=== PATIENT | female | born 1950 | race Two or more races ===

== ENCOUNTER 2019-04-16 19:24 | Inpatient (IN) | payer SELFPAY ==
[~2019-04-16] VITALS: Ht 167.6 cm; Wt 85.8 kg
[2019-04-16] MEDS ORDERED: IV NORMAL SALINE 1000ML BAG 1,000 ML IV ONE (20:00)
[2019-04-16] MEDS ORDERED: IPRATRPIUM/ALBUTEROL 0.5/2.5MG 3 ML NEBU. NEB ONE (20:00)
[2019-04-16 20:02] LABS: BASO % 0 % (0-3); EOS % 0 % (0-3); HEMATOCRIT 41.4 % (36.0-47.0); HEMOGLOBIN 13.8 g/dL (12.0-15.5); LYMPH # 0.8 x10^3/uL (1.0-4.8); LYMPH % 11 % (24-48); MEAN CORPUSCULAR HEMOGLOBIN 30 pg (25-35); MEAN CORPUSCULAR HGB CONC 33 g/dL (31-37); MEAN CORPUSCULAR VOLUME 89 fL (79-100); MONO # 0.6 x10^3/uL (0.0-1.1); MONO % 8 % (0-9); NEUT # 6.1 x10^3/uL (1.8-7.7); NEUT % 81 % (31-73); PLATELET COUNT 181 x10^3/uL (140-400); RED BLOOD COUNT 4.66 x10^6/uL (3.50-5.40); RED CELL DISTRIBUTION WIDTH 16.6 % (11.5-14.5); WHITE BLOOD COUNT 7.6 x10^3/uL (4.0-11.0)
[2019-04-16 20:12] LABS: PROTHROMBIN TIME PATIENT 12.1 SEC (11.7-14.0)
[2019-04-16 20:13] LABS: CALCIUM 8.9 mg/dL (8.5-10.1); CREATININE 0.9 mg/dL (0.6-1.0); GFR 61.9; POTASSIUM 4.7 mmol/L (3.5-5.1)
[2019-04-16 20:16] LABS: D-DIMER 1.55 ug/mlFEU (0.00-0.50)
[2019-04-16 20:29] LABS: ALBUMIN 3.1 g/dL (3.4-5.0); ALBUMIN/GLOBULIN RATIO 0.7 (1.0-1.7); TOTAL BILIRUBIN 0.6 mg/dL (0.2-1.0); TOTAL PROTEIN 7.5 g/dL (6.4-8.2)
[2019-04-16] MEDS ORDERED: levOFLOXacin PER PHARMACY. MC PRN (20:45)
[2019-04-16] MEDS ORDERED: FUROSEMIDE 20 MG/2 ML VIAL. IVP ONE (20:45)
--- NOTE | 2019-04-16 20:57 | RAD ---
Indication:Shortness of breath. TECHNIQUE:Portable AP chest X-ray COMPARISON: None FINDINGS: Heart is normal in size. Diffuse interstitial opacities are seen. Fullness is seen in the right hilum. No focal consolidation. No pneumothorax or pleural effusion. Visualized bony thorax within normal limits. IMPRESSION: Interstitial pulmonary edema or atypical/viral infection. Hilar fullness likely secondary to patient being rotated. Hilar mass not ruled out. Nonemergent CT of the chest with IV contrast recommended. Electronically signed by: Yoan Hart DO (04/16/2019 8:54 PM) [facility]
[2019-04-16] MEDS ORDERED: ASPIRIN CHEWABLE 81 MG TABLET. PO ONE (21:00)
[2019-04-16] MEDS ORDERED: CONTRAST GIVEN. MC PRN (21:00)
[2019-04-16] MEDS ORDERED: IOHEXOL 350 MG/ML 100 ML VIAL. IV ONE (21:00)
--- NOTE | 2019-04-16 21:09 | RAD ---
PQRS Compliance statement: One or more of the following individualized dose reduction techniques were utilized for this examination: 1. Automated exposure control. 2. Adjustment of the mA and/or kV according to patient size. 3. Use of iterative reconstruction technique. Indication:Chest pain. Rule out PE. Shortness of breath. TECHNIQUE: CT angiogram of the chest with IV contrast with multiplanar MIP reformats. COMPARISON:None FINDINGS: Suboptimal PE study due to contrast bolus timing and breathing motion artifact. No central or proximal segmental filling defects in the pulmonary arteries. Evaluation of segmental and subsegmental pulmonary arteries is limited. Heart is normal in size. No pericardial or pleural effusion. No enlarged axillary adenopathy. Couple of mildly enlarged mediastinal lymph nodes, the largest measuring 1.6 x 1.4 cm. No hilar adenopathy. Interstitial opacities are seen in the right upper lobe. Mosaic attenuation is seen in the lungs. Severe motion artifact in the lung bases limiting optimal evaluation. Visualized sections through the liver, spleen, gallbladder, and previous, adrenals and upper kidneys within normal limits. No suspicious bony lesion. IMPRESSION: 1. Limited PE study due to contrast bolus timing and breathing motion artifact. No central or proximal segmental PE. Evaluation of distal segmental and subsegmental pulmonary arteries is limited. 2. Interstitial opacities in the bilateral upper lobes may be secondary to interstitial edema or infection. Developing interstitial fibrosis is also a possibility. Electronically signed by: Yoan Hart DO (04/16/2019 9:06 PM) [facility]
--- NOTE | 2019-04-16 22:45 | PHYS DOC ---
Past Medical History Past Medical History: Diabetes-Type II, Hypertension Past Surgical History: No Surgical History Alcohol Use: None Drug Use: None Adult General Chief Complaint Chief Complaint: CHEST PAIN HPI HPI Patient is a 68 year old female private vehicle presents with chief complaint of shortness of breath feels like her chest is tight especially when coughing has had this for about a month or more now but it got worse over the last few days went to primary care doctor Prednisone and some other prescriptions but the symptoms are worse. Patient does not use oxygen at home. Of note in the emergency room the oxygen level does go down into the mid 80s for a little while maybe 30 seconds or so while I am examining the patient with a good waveform and then comes back up into the low 90s. She does have coughing fits in the emergency room. Chest tightness described as heaviness tight across the chest worse with coughing Patient is a known history of pulmonary fibrosis according to the family Review of Systems Review of Systems Constitutional: Denies fever or chills [] Eyes: Denies change in visual acuity, redness, or eye pain [] HENT: Denies nasal congestion or sore throat [] Musculoskeletal: Denies back pain or joint pain [] Integument: Denies rash or skin lesions [] Neurologic: Denies headache, focal weakness or sensory changes [] Endocrine: Denies polyuria or polydipsia [] All other systems were reviewed and found to be within normal limits, except as documented in this note. Current Medications Current Medications Current Medications Medications (Trade) Dose Ordered Sig/Coty Start Time Stop Time Status Last Admin Dose Admin Albuterol/ Ipratropium (Duoneb) 3 ml 1X ONCE 04/16/19 20:00 04/16/19 20:13 DC 04/16/19 20:04 3 ML Sodium Chloride 1,000 ml @ 1,000 mls/hr 1X ONCE 04/16/19 20:00 04/16/19 20:59 DC 04/16/19 20:00 1,000 MLS/HR Allergies Allergies Allergies Coded Allergies Type Severity Reaction Last Updated Verified No Known Drug Allergies 04/16/19 No Physical Exam Physical Exam Constitutional: Well developed, well nourished, no acute distress, non-toxic appearance. [] HENT: Normocephalic, atraumatic, bilateral external ears normal, oropharynx moist, no oral exudates, nose normal. [] Eyes: PERRLA, EOMI, conjunctiva normal, no discharge. [] Neck: Normal range of motion, no tenderness, supple, no stridor. [] Cardiovascular:Heart rate regular rhythm, 2/6 systolic murmur noted Lungs & Thorax: There are some faint wheezing noted reactive cough there are crackles noted throughout both lung ochoa tight lung sounds noted Abdomen: Bowel sounds normal, soft, no tenderness, no masses, no pulsatile masses. [] Skin: Warm, dry, no erythema, no rash. [] Back: No tenderness, no CVA tenderness. [] Extremities: No tenderness, no cyanosis, no clubbing, ROM intact, trace edema. [] Neurologic: Alert and oriented X 3, normal motor function, normal sensory function, no focal deficits noted. [] Psychologic: Affect normal, judgement normal, mood normal. [] Current Patient Data Vital Signs Vital Signs Date Time Temp Pulse Resp B/P (MAP) Pulse Ox O2 Delivery O2 Flow Rate FiO2 04/16/19 20:05 97 Nasal Cannula 3.0 04/16/19 19:58 97.8 78 16 150/83 (105) 97.8 Lab Values Laboratory Tests Test 04/16/19 19:41 04/16/19 19:47 White Blood Count 7.6 x10^3/uL (4.0-11.0) Red Blood Count 4.66 x10^6/uL (3.50-5.40) Hemoglobin 13.8 g/dL (12.0-15.5) Hematocrit 41.4 % (36.0-47.0) Mean Corpuscular Volume 89 fL (79-100) Mean Corpuscular Hemoglobin 30 pg (25-35) Mean Corpuscular Hemoglobin Concent 33 g/dL (31-37) Red Cell Distribution Width 16.6 % (11.5-14.5) H Platelet Count 181 x10^3/uL (140-400) Neutrophils (%) (Auto) 81 % (31-73) H Lymphocytes (%) (Auto) 11 % (24-48) L Monocytes (%) (Auto) 8 % (0-9) Eosinophils (%) (Auto) 0 % (0-3) Basophils (%) (Auto) 0 % (0-3) Neutrophils # (Auto) 6.1 x10^3/uL (1.8-7.7) Lymphocytes # (Auto) 0.8 x10^3/uL (1.0-4.8) L Monocytes # (Auto) 0.6 x10^3/uL (0.0-1.1) Eosinophils # (Auto) 0.0 x10^3/uL (0.0-0.7) Basophils # (Auto) 0.0 x10^3/uL (0.0-0.2) Prothrombin Time 12.1 SEC (11.7-14.0) Prothrombin Time INR 0.9 (0.8-1.1) D-Dimer (Kirsty) 1.55 ug/mlFEU (0.00-0.50) H Sodium Level 134 mmol/L (136-145) L Potassium Level 4.7 mmol/L (3.5-5.1) Chloride Level 99 mmol/L (98-107) Carbon Dioxide Level 30 mmol/L (21-32) Anion Gap 5 (6-14) L Blood Urea Nitrogen 23 mg/dL (7-20) H Creatinine 0.9 mg/dL (0.6-1.0) Estimated GFR (Cockcroft-Gault) 61.9 BUN/Creatinine Ratio 26 (6-20) H Glucose Level 369 mg/dL (70-99) H Lactic Acid Level 2.5 mmol/L (0.4-2.0) H Calcium Level 8.9 mg/dL (8.5-10.1) Total Bilirubin 0.6 mg/dL (0.2-1.0) Aspartate Amino Transferase (AST) 36 U/L (15-37) Alanine Aminotransferase (ALT) 36 U/L (14-59) Alkaline Phosphatase 64 U/L (46-116) Troponin I Quantitative 0.184 ng/mL (0.000-0.055) GM-Wws-X-Type Natriuretic Peptide 2988 pg/mL (0-124) H Total Protein 7.5 g/dL (6.4-8.2) Albumin 3.1 g/dL (3.4-5.0) L Albumin/Globulin Ratio 0.7 (1.0-1.7) L Glucose (Fingerstick) 351 mg/dL (70-99) H Laboratory Tests 04/16/19 19:41 Laboratory Tests 04/16/19 19:41 EKG EKG []EKG shows a normal sinus rhythm rate of 90 no obvious acute ischemic changes noted interpreted by me the time of the clinical encounter. Poor baseline due to what looks like tremor Radiology/Procedures Radiology/Procedures [] Impressions: IMPRESSION: 1. Limited PE study due to contrast bolus timing and breathing motion artifact. No central or proximal segmental PE. Evaluation of distal segmental and subsegmental pulmonary arteries is limited. 2. Interstitial opacities in the bilateral upper lobes may be secondary to interstitial edema or infection. Developing interstitial fibrosis is also a possibility. Electronically signed by: Yoan Hart DO (04/16/2019 9:06 PM) [facility] Course & Med Decision Making Course & Med Decision Making Pertinent Labs and Imaging studies reviewed. (See chart for details) []Noted the troponin and BNP this could be new onset congestive heart failure, CT scan negative for central pulmonary embolism. Troponins will be cycled aspiri n was given. Patient has had symptoms for several days now. In summary this is a 68-year-old female with a history of what sounds like pulmonary fibrosis diabetes hypertension presenting with chest tightness for the last several days worsening shortness of breath generalized weakness increased blood sugar. Patient had been put on prednisone recently by primary care doctor. ER workup reveals elevated BNP slightly elevated troponin CT scan showing either atypical infection or pulmonary edema. I think based on the lab work it's more likely the latter. Patient was treated for both in the ER I spoke with Dr. Latham came to see the patient in the emergency room Dragon Disclaimer Dragon Disclaimer This electronic medical record was generated, in whole or in part, using a voice recognition dictation system. Departure Departure Impression: Primary Impression: CHF (congestive heart failure) Additional Impression: Elevated troponin Disposition: ADMITTED INPATIENT Admitting Physician: ARTHUR Condition: STABLE Referrals: NO PCP (PCP) Problem Qualifiers ARPITA MALIK MD Apr 16, 2019 22:44
[2019-04-17 03:30] LABS: CALCIUM 8.5 mg/dL (8.5-10.1); CREATININE 0.7 mg/dL (0.6-1.0); GFR 82.7; POTASSIUM 3.9 mmol/L (3.5-5.1)
[2019-04-17] MEDS: IPRATRPIUM/ALBUTEROL 0.5/2.5MG 3 ML NEBU. NEB SCH ×4 (07:14→20:00)
[2019-04-17] MEDS ORDERED: SITA100T PO (07:35)
[2019-04-17] MEDS ORDERED: BENZ100C PO (07:35)
[2019-04-17] MEDS ORDERED: PRED-220 PO (07:35)
[2019-04-17] MEDS ORDERED: AZAT50TA20 PO (07:35)
[2019-04-17] MEDS ORDERED: GLIP10TA13 PO ×2 (07:35)
[2019-04-17] MEDS ORDERED: LISI-334 PO (07:35)
[2019-04-17] MEDS ORDERED: CALC600T4 PO (07:35)
--- NOTE | 2019-04-17 08:13 | EKG ---
[facility] [address] [place] [address] Test Date: 2019-04-16 Test Time: 19:39:52 Pat Name: ALLIE AVENDAON Department: Room: ED HOLD 18 Gender: F Puttier: : 1950 Requested By: ARPITA MALIK Order Number: [id number] Reading MD: Manolo Connelly MD Measurements Intervals [place] Rate: 90 P: 50 DE: 140 QRS: 4 QRSD: 86 T: -5 QT: 370 QTc: 456 Interpretive Statements SINUS RHYTHM NON-SPECIFIC ST/T CHANGES Electronically Signed On 04-28-2019 14:16:51 CDT by Manolo Connelly MD
[2019-04-17 08:44] LABS: CHOLESTEROL/HDL RATIO 3.4
--- NOTE | 2019-04-17 08:53 | PDOC2 ---
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 She has pulmonary fibrosis hence imuran and prednisone. She has been told that she needed oxygen and tried many places and could not obtain one because she could not afford it. Reports that she was having chest pressure yesterday but brief but no other time. Her main complaint coming in was feeling weak and dizzy. Her BG was checked at home and noted in the 500s. No nausea or vomiting but positive for PND. No complains of significant leg swelling. She also has been coughing more with some white sputum but no fever or chills. Denies any recent falls or injury. She has not had any prior cardiac workup and no known hx of arrhythmias, CAD, VTE or CVA. She has been SOA and worse in the last month and still unable to obtain O2. PAST MEDICAL HISTORY Cardiovascular: HTN, Other (varicose) Pulmonary: Other (pulmonary fibrosis) CENTRAL NERVOUS SYSTEM: Other (No pertinenet hx) GI: No pertinent hx Heme/Onc: No pertinent hx Hepatobiliary: No pertinent hx Psych: No pertinent hx Musculoskeletal: low back pain, Osteoarthritis Infectious disease: No pertinent hx ENT: No pertinent hx Renal/: No pertinent hx Endocrine: Diabetes Dermatology: No pertinent hx PAST SURGICAL HISTORY Past Surgical History: Other (back surgery) FAMILY HISTORY Family History: Heart Disease SOCIAL HISTORY Smoke: No ALCOHOL: none Drugs: None Lives: with Family CURRENT MEDICATIONS CURRENT MEDICATIONS Current Medications Medications (Trade) Dose Ordered Sig/Coty Route PRN Reason Start Time Stop Time Status Last Admin Dose Admin Albuterol/ Ipratropium (Duoneb) 3 ml 1X ONCE NEB 04/16/19 20:00 04/16/19 20:13 DC 04/16/19 20:04 Sodium Chloride 1,000 ml @ 1,000 mls/hr 1X ONCE IV 04/16/19 20:00 04/16/19 20:59 DC 04/16/19 20:00 Furosemide (Lasix) 20 mg 1X ONCE IVP 04/16/19 20:45 04/16/19 20:49 DC 04/16/19 22:12 Levofloxacin/ Dextrose 150 ml @ 100 mls/hr Q24H IV 04/16/19 21:00 04/16/19 22:15 Iohexol (Omnipaque 350 Mg/ml) 100 ml 1X ONCE IV 04/16/19 21:00 04/16/19 21:01 DC 04/16/19 20:54 Albuterol/ Ipratropium (Duoneb) 3 ml RTQID NEB 04/17/19 08:00 04/18/19 07:59 04/17/19 07:14 Aspirin (Children'S Aspirin) 324 mg 1X ONCE PO 04/16/19 21:00 04/16/19 21:01 DC 04/16/19 22:15 ALLERGIES ALLERGIES: Coded Allergies: No Known Drug Allergies (Unverified , 04/16/19) PHYSICAL EXAM General: Alert, Oriented X3, Cooperative, No acute distress HEENT: Atraumatic, Mucous membr. moist/pink Lungs: Other (diffuse crackles) Heart: Regular rate (SR), Normal S1, Normal S2, Other (2./6 systolic murmur to LLS border) Abdomen: Soft, No tenderness Extremities: No cyanosis, Other (trace LE edema) Skin: No breakdown, No significant lesion Neuro: Normal speech, Sensation intact Psych/Mental Status: Mental status NL, Mood NL MUSCULOSKELETAL: Osteoarthritic changes both hands VITALS/I&O VITALS/I&O: Vital Signs Date Time Temp Pulse Resp B/P (MAP) Pulse Ox O2 Delivery O2 Flow Rate FiO2 04/17/19 07:24 77 20 128/69 (88) 93 Nasal Cannula 2.0 04/16/19 19:58 97.8 97.8 I & O 04/16/19 04/16/19 04/17/19 14:59 22:59 06:59 Intake Total 700 ml 150 ml Balance 700 ml 150 ml LABS Lab: Laboratory Tests Test 04/16/19 19:41 04/16/19 19:47 04/16/19 23:15 04/17/19 03:05 White Blood Count 7.6 x10^3/uL (4.0-11.0) Red Blood Count 4.66 x10^6/uL (3.50-5.40) Hemoglobin 13.8 g/dL (12.0-15.5) Hematocrit 41.4 % (36.0-47.0) Mean Corpuscular Volume 89 fL (79-100) Mean Corpuscular Hemoglobin 30 pg (25-35) Mean Corpuscular Hemoglobin Concent 33 g/dL (31-37) Red Cell Distribution Width 16.6 % (11.5-14.5) H Platelet Count 181 x10^3/uL (140-400) Neutrophils (%) (Auto) 81 % (31-73) H Lymphocytes (%) (Auto) 11 % (24-48) L Monocytes (%) (Auto) 8 % (0-9) Eosinophils (%) (Auto) 0 % (0-3) Basophils (%) (Auto) 0 % (0-3) Neutrophils # (Auto) 6.1 x10^3/uL (1.8-7.7) Lymphocytes # (Auto) 0.8 x10^3/uL (1.0-4.8) L Monocytes # (Auto) 0.6 x10^3/uL (0.0-1.1) Eosinophils # (Auto) 0.0 x10^3/uL (0.0-0.7) Basophils # (Auto) 0.0 x10^3/uL (0.0-0.2) Prothrombin Time 12.1 SEC (11.7-14.0) Prothrombin Time INR 0.9 (0.8-1.1) D-Dimer (Kirsty) 1.55 ug/mlFEU (0.00-0.50) H Sodium Level 134 mmol/L (136-145) L 141 mmol/L (136-145) Potassium Level 4.7 mmol/L (3.5-5.1) 3.9 mmol/L (3.5-5.1) Chloride Level 99 mmol/L (98-107) 103 mmol/L (98-107) Carbon Dioxide Level 30 mmol/L (21-32) 36 mmol/L (21-32) H Anion Gap 5 (6-14) L 2 (6-14) L Blood Urea Nitrogen 23 mg/dL (7-20) H 17 mg/dL (7-20) Creatinine 0.9 mg/dL (0.6-1.0) 0.7 mg/dL (0.6-1.0) Estimated GFR (Cockcroft-Gault) 61.9 82.7 BUN/Creatinine Ratio 26 (6-20) H Glucose Level 369 mg/dL (70-99) H 143 mg/dL (70-99) H Lactic Acid Level 2.5 mmol/L (0.4-2.0) H 1.5 mmol/L (0.4-2.0) Calcium Level 8.9 mg/dL (8.5-10.1) 8.5 mg/dL (8.5-10.1) Total Bilirubin 0.6 mg/dL (0.2-1.0) Aspartate Amino Transferase (AST) 36 U/L (15-37) Alanine Aminotransferase (ALT) 36 U/L (14-59) Alkaline Phosphatase 64 U/L (46-116) Troponin I Quantitative 0.184 ng/mL (0.000-0.055) 0.193 ng/mL (0.000-0.055) 0.168 ng/mL (0.000-0.055) PH-Hpz-Q-Type Natriuretic Peptide 2988 pg/mL (0-124) H Total Protein 7.5 g/dL (6.4-8.2) Albumin 3.1 g/dL (3.4-5.0) L Albumin/Globulin Ratio 0.7 (1.0-1.7) L Glucose (Fingerstick) 351 mg/dL (70-99) H Test 04/17/19 07:43 Glucose (Fingerstick) 100 mg/dL (70-99) H Laboratory Tests 04/16/19 19:41 Laboratory Tests 04/16/19 19:41 04/17/19 03:05 ASSESSMENT/PLAN ASSESSMENT/PLAN 1. Dyspnea: due to CHF and pulmonary fibrosis 2. Acute CHF with possible diastolic dysfunction 3. NSTEMI: possibly type 2. Peaked trop at 0.19 4. Chronic immunosuppression: imuran and prednisone 5. HTN: controlled 6. DM2: uncontrolled, BG 500s at home Recommendations 1. TTE, Repeat EKG. Ischemic workup pending the latter. Continue with optimization 2. Check TSH, lipids 3. Consult pulmonary 4. Lasix has been given. ASA 5. SS consult DEON LIN MD 04/18/[id number]: CARDIAC CONSULT ASSESSMENT/PLAN ASSESSMENT/PLAN Late entry for 04/17/2019 pt. seen and examined. 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 No clear cardiac issues to note. Normal EF on echo. Given her significant risk factors and multiple admissions, will rule out ischemia with stress testing. Thanks POLLY NICOLE APRN Apr 17, 2019 08:53 DEON LIN MD Apr 18, 2019 21:27
--- NOTE | 2019-04-17 09:08 | PDOC1 ---
History and Physical Date of Admission Date of Admission DATE: 04/17/19 TIME: 09:07 Identification/Chief Complaint Chief Complaint seen in er , 68 year old female private vehicle presents with chief complaint of shortness of breath feels like her chest is tight especially when coughing has had this for about a month or more now but it got worse over the last few days went to primary care doctor rx with Prednisone and some other prescriptions but the symptoms are worse. minimal RUQ discomfort noted Of note in the emergency room the oxygen level does go down into the mid 80s /// low 90s. . Past Medical History Past Medical History Past Medical History Past Medical History: Diabetes-Type II, Hypertension Past Surgical History: No Surgical History Alcohol Use: None Drug Use: None FHX OBESITY Cardiovascular: HTN, Other (varicose) Pulmonary: Other (pulmonary fibrosis) CENTRAL NERVOUS SYSTEM: Other (No pertinenet hx) GI: No pertinent hx Heme/Onc: No pertinent hx Hepatobiliary: No pertinent hx Psych: No pertinent hx Musculoskeletal: low back pain, Osteoarthritis Infectious disease: No pertinent hx ENT: No pertinent hx Renal/: No pertinent hx Endocrine: Diabetes Dermatology: No pertinent hx Past Surgical History Past Surgical History: Other (back surgery) Family History Family History: Heart Disease, High Cholestrol Social History Smoke: No ALCOHOL: none Drugs: None Current Medications Current Medications Current Medications Albuterol/ Ipratropium (Duoneb) 3 ml 1X ONCE NEB Last administered on 04/16/19at 20:04; Start 04/16/19 at 20:00; Stop 04/16/19 at 20:13; Status DC Sodium Chloride 1,000 ml @ 1,000 mls/hr 1X ONCE IV Last administered on 04/16/19at 20:00; Start 04/16/19 at 20:00; Stop 04/16/19 at 20:59; Status DC Furosemide (Lasix) 20 mg 1X ONCE IVP Last administered on 04/16/19at 22:12; Start 04/16/19 at 20:45; Stop 04/16/19 at 20:49; Status DC Levofloxacin/ Dextrose (Levaquin Per Pharmacy) 1 each PRN DAILY PRN MC SEE COMMENTS; Start 04/16/19 at 20:45 Levofloxacin/ Dextrose 150 ml @ 100 mls/hr Q24H IV Last administered on 04/16/19at 22:15; Start 04/16/19 at 21:00 Iohexol (Omnipaque 350 Mg/ml) 100 ml 1X ONCE IV Last administered on 04/16/19at 20:54; Start 04/16/19 at 21:00; Stop 04/16/19 at 21:01; Status DC Info (CONTRAST GIVEN -- Rx MONITORING) 1 each PRN DAILY PRN MC SEE COMMENTS; Start 04/16/19 at 21:00; Stop 04/18/19 at 20:59 Albuterol/ Ipratropium (Duoneb) 3 ml RTQID NEB Last administered on 04/17/19at 07:14; Start 04/17/19 at 08:00; Stop 04/18/19 at 07:59 Aspirin (Children'S Aspirin) 324 mg 1X ONCE PO Last administered on 04/16/19at 22:15; Start 04/16/19 at 21:00; Stop 04/16/19 at 21:01; Status DC Active Scripts Active Reported Lisinopril 20 Mg Tablet 1 Tab PO DAILY Tessalon Perle (Benzonatate) 100 Mg Capsule 1 Cap PO BID Calcium (Calcium Carbonate) 600 Mg Tablet 600 Mg PO DAILY Januvia (Sitagliptin Phosphate) 100 Mg Tablet 1 Tab PO DAILY Imuran (Azathioprine) 50 Mg Tablet 2 Tab PO DAILY Glipizide 10 Mg Tablet 1 Tab PO DAILYWSUP Glipizide 10 Mg Tablet 2 Tab PO DAILYWBKFT Prednisone (Prednisone) 10 Mg Tablet 15 Mg PO DAILY Allergies Allergies: Coded Allergies: No Known Drug Allergies (Unverified , 04/16/19) ROS Review of System Review of Systems Review of Systems Constitutional: Denies fever or chills [] Eyes: Denies change in visual acuity, redness, or eye pain [] HENT: Denies nasal congestion or sore throat [] Musculoskeletal: Denies back pain or joint pain [] Integument: Denies rash or skin lesions [] Neurologic: Denies headache, focal weakness or sensory changes [] Endocrine: Denies polyuria or polydipsia [] 14 pt systems were reviewed and found to be within normal limits, except as documented General: YES: Fatigue PSYCHOLOGICAL ROS: No: Anxiety, Behavioral Disorder, Concentration difficultie, Decreased libido, Depression, Disorientation, Hallucinations, Hostility, Irritablity, Memory difficulties, Mood Swings, Obsessive thoughts, Physical abuse, Sexual abuse, Sleep disturbances, Suicidal ideation, Other ALLERGY AND IMMUNOLOGY: No: Hives, Insect Bite Sensitivity, Itchy/Watery Eyes, Nasal Congestion, Post Nasal Drip, Seasonal Allergies, Other Respiratory: YES: Shortness of breath Gastrointestinal: No Nausea, No Vomiting, No Abdominal Pain, No Diarrhea, No Constipation, No Melena, No Hematochezia, No Other Musculoskeletal: Yes Joint Stiffness Skin: No Dry Skin, No Eczema, No Hair Changes, No Lumps, No Mole Changes, No Mottling, No Nail Changes, No Pruritus, No Rash, No Skin Lesion Changes, No Other, No Acne Physical Exam Physical Exam Physical Exam Physical Exam Constitutional: Well developed, well nourished, no acute distress, non-toxic appearance. [] HENT: Normocephalic, atraumatic, bilateral external ears normal, oropharynx moist, no oral exudates, nose normal. [] Eyes: PERRLA, EOMI, conjunctiva normal, no discharge. [] Neck: Normal range of motion, no tenderness, supple, no stridor. [] Cardiovascular:Heart rate regular rhythm, 2/6 systolic murmur noted Lungs & Thorax: There are some faint wheezing noted reactive cough there are crackles noted throughout both lung ochoa tight lung sounds noted Abdomen: Bowel sounds normal, soft, no tenderness, no masses, no pulsatile masses. [] Skin: Warm, dry, no erythema, no rash. [] Back: No tenderness, no CVA tenderness. [] Extremities: No tenderness, no cyanosis, no clubbing, ROM intact, trace edema. [] Neurologic: Alert and oriented X 3, normal motor function, normal sensory function, no focal deficits noted. [] Psychologic: Affect normal, judgement normal, mood normal. [] General: Alert, Oriented X3, Cooperative, No acute distress HEENT: Atraumatic, EOMI Heart: RRR Breasts: Not examined Abdomen: Normal bowel sounds, Soft, No tenderness Rectal Exam: not examined PELVIC: Examination not indicated Extremities: No cyanosis Neuro: Normal speech, Cranial nerves 3-12 NL Psych/Mental Status: Mental status NL, Mood NL Vitals Vitals Vital Signs Date Time Temp Pulse Resp B/P (MAP) Pulse Ox O2 Delivery O2 Flow Rate FiO2 04/17/19 07:24 77 20 128/69 (88) 93 Nasal Cannula 2.0 04/16/19 19:58 97.8 97.8 Labs Labs Laboratory Tests Test 04/16/19 19:41 04/16/19 19:47 04/16/19 23:15 04/17/19 03:05 White Blood Count 7.6 x10^3/uL (4.0-11.0) Red Blood Count 4.66 x10^6/uL (3.50-5.40) Hemoglobin 13.8 g/dL (12.0-15.5) Hematocrit 41.4 % (36.0-47.0) Mean Corpuscular Volume 89 fL (79-100) Mean Corpuscular Hemoglobin 30 pg (25-35) Mean Corpuscular Hemoglobin Concent 33 g/dL (31-37) Red Cell Distribution Width 16.6 % (11.5-14.5) Platelet Count 181 x10^3/uL (140-400) Neutrophils (%) (Auto) 81 % (31-73) Lymphocytes (%) (Auto) 11 % (24-48) Monocytes (%) (Auto) 8 % (0-9) Eosinophils (%) (Auto) 0 % (0-3) Basophils (%) (Auto) 0 % (0-3) Neutrophils # (Auto) 6.1 x10^3/uL (1.8-7.7) Lymphocytes # (Auto) 0.8 x10^3/uL (1.0-4.8) Monocytes # (Auto) 0.6 x10^3/uL (0.0-1.1) Eosinophils # (Auto) 0.0 x10^3/uL (0.0-0.7) Basophils # (Auto) 0.0 x10^3/uL (0.0-0.2) Prothrombin Time 12.1 SEC (11.7-14.0) Prothromb Time International Ratio 0.9 (0.8-1.1) D-Dimer (Kirsty) 1.55 ug/mlFEU (0.00-0.50) Sodium Level 134 mmol/L (136-145) 141 mmol/L (136-145) Potassium Level 4.7 mmol/L (3.5-5.1) 3.9 mmol/L (3.5-5.1) Chloride Level 99 mmol/L (98-107) 103 mmol/L (98-107) Carbon Dioxide Level 30 mmol/L (21-32) 36 mmol/L (21-32) Anion Gap 5 (6-14) 2 (6-14) Blood Urea Nitrogen 23 mg/dL (7-20) 17 mg/dL (7-20) Creatinine 0.9 mg/dL (0.6-1.0) 0.7 mg/dL (0.6-1.0) Estimated GFR (Cockcroft-Gault) 61.9 82.7 BUN/Creatinine Ratio 26 (6-20) Glucose Level 369 mg/dL (70-99) 143 mg/dL (70-99) Lactic Acid Level 2.5 mmol/L (0.4-2.0) 1.5 mmol/L (0.4-2.0) Calcium Level 8.9 mg/dL (8.5-10.1) 8.5 mg/dL (8.5-10.1) Total Bilirubin 0.6 mg/dL (0.2-1.0) Aspartate Amino Transf (AST/SGOT) 36 U/L (15-37) Alanine Aminotransferase (ALT/SGPT) 36 U/L (14-59) Alkaline Phosphatase 64 U/L (46-116) Troponin I Quantitative 0.184 ng/mL (0.000-0.055) 0.193 ng/mL (0.000-0.055) 0.168 ng/mL (0.000-0.055) ZA-Lqr-E-Type Natriuretic Peptide 2988 pg/mL (0-124) Total Protein 7.5 g/dL (6.4-8.2) Albumin 3.1 g/dL (3.4-5.0) Albumin/Globulin Ratio 0.7 (1.0-1.7) Glucose (Fingerstick) 351 mg/dL (70-99) Triglycerides Level 186 mg/dL (0-150) Cholesterol Level 171 mg/dL (0-200) LDL Cholesterol, Calculated 83 mg/dL (0-100) VLDL Cholesterol, Calculated 37 mg/dL (0-40) Non-HDL Cholesterol Calculated 120 mg/dL (0-129) HDL Cholesterol 51 mg/dL (40-60) Cholesterol/HDL Ratio 3.4 Thyroid Stimulating Hormone (TSH) 1.771 uIU/mL (0.358-3.74) Test 04/17/19 07:43 Glucose (Fingerstick) 100 mg/dL (70-99) Laboratory Tests Test 04/16/19 19:41 04/16/19 19:47 04/16/19 23:15 04/17/19 03:05 White Blood Count 7.6 x10^3/uL (4.0-11.0) Red Blood Count 4.66 x10^6/uL (3.50-5.40) Hemoglobin 13.8 g/dL (12.0-15.5) Hematocrit 41.4 % (36.0-47.0) Mean Corpuscular Volume 89 fL (79-100) Mean Corpuscular Hemoglobin 30 pg (25-35) Mean Corpuscular Hemoglobin Concent 33 g/dL (31-37) Red Cell Distribution Width 16.6 % (11.5-14.5) Platelet Count 181 x10^3/uL (140-400) Neutrophils (%) (Auto) 81 % (31-73) Lymphocytes (%) (Auto) 11 % (24-48) Monocytes (%) (Auto) 8 % (0-9) Eosinophils (%) (Auto) 0 % (0-3) Basophils (%) (Auto) 0 % (0-3) Neutrophils # (Auto) 6.1 x10^3/uL (1.8-7.7) Lymphocytes # (Auto) 0.8 x10^3/uL (1.0-4.8) Monocytes # (Auto) 0.6 x10^3/uL (0.0-1.1) Eosinophils # (Auto) 0.0 x10^3/uL (0.0-0.7) Basophils # (Auto) 0.0 x10^3/uL (0.0-0.2) Prothrombin Time 12.1 SEC (11.7-14.0) Prothromb Time International Ratio 0.9 (0.8-1.1) D-Dimer (Kirsty) 1.55 ug/mlFEU (0.00-0.50) Sodium Level 134 mmol/L (136-145) 141 mmol/L (136-145) Potassium Level 4.7 mmol/L (3.5-5.1) 3.9 mmol/L (3.5-5.1) Chloride Level 99 mmol/L (98-107) 103 mmol/L (98-107) Carbon Dioxide Level 30 mmol/L (21-32) 36 mmol/L (21-32) Anion Gap 5 (6-14) 2 (6-14) Blood Urea Nitrogen 23 mg/dL (7-20) 17 mg/dL (7-20) Creatinine 0.9 mg/dL (0.6-1.0) 0.7 mg/dL (0.6-1.0) Estimated GFR (Cockcroft-Gault) 61.9 82.7 BUN/Creatinine Ratio 26 (6-20) Glucose Level 369 mg/dL (70-99) 143 mg/dL (70-99) Lactic Acid Level 2.5 mmol/L (0.4-2.0) 1.5 mmol/L (0.4-2.0) Calcium Level 8.9 mg/dL (8.5-10.1) 8.5 mg/dL (8.5-10.1) Total Bilirubin 0.6 mg/dL (0.2-1.0) Aspartate Amino Transf (AST/SGOT) 36 U/L (15-37) Alanine Aminotransferase (ALT/SGPT) 36 U/L (14-59) Alkaline Phosphatase 64 U/L (46-116) Troponin I Quantitative 0.184 ng/mL (0.000-0.055) 0.193 ng/mL (0.000-0.055) 0.168 ng/mL (0.000-0.055) IM-Ued-W-Type Natriuretic Peptide 2988 pg/mL (0-124) Total Protein 7.5 g/dL (6.4-8.2) Albumin 3.1 g/dL (3.4-5.0) Albumin/Globulin Ratio 0.7 (1.0-1.7) Glucose (Fingerstick) 351 mg/dL (70-99) Triglycerides Level 186 mg/dL (0-150) Cholesterol Level 171 mg/dL (0-200) LDL Cholesterol, Calculated 83 mg/dL (0-100) VLDL Cholesterol, Calculated 37 mg/dL (0-40) Non-HDL Cholesterol Calculated 120 mg/dL (0-129) HDL Cholesterol 51 mg/dL (40-60) Cholesterol/HDL Ratio 3.4 Thyroid Stimulating Hormone (TSH) 1.771 uIU/mL (0.358-3.74) Test 04/17/19 07:43 Glucose (Fingerstick) 100 mg/dL (70-99) Images Images PROCEDURE: CT ANGIOGRAPHY CHEST PQRS Compliance statement: One or more of the following individualized dose reduction techniques were utilized for this examination: 1. Automated exposure control. 2. Adjustment of the mA and/or kV according to patient size. 3. Use of iterative reconstruction technique. Indication:Chest pain. Rule out PE. Shortness of breath. TECHNIQUE: CT angiogram of the chest with IV contrast with multiplanar MIP reformats. COMPARISON:None FINDINGS: Suboptimal PE study due to contrast bolus timing and breathing motion artifact. No central or proximal segmental filling defects in the pulmonary arteries. Evaluation of segmental and subsegmental pulmonary arteries is limited. Heart is normal in size. No pericardial or pleural effusion. No enlarged axillary adenopathy. Couple of mildly enlarged mediastinal lymph nodes, the largest measuring 1.6 x 1.4 cm. No hilar adenopathy. Interstitial opacities are seen in the right upper lobe. Mosaic attenuation is seen in the lungs. Severe motion artifact in the lung bases limiting optimal evaluation. Visualized sections through the liver, spleen, gallbladder, and previous, adrenals and upper kidneys within normal limits. No suspicious bony lesion. IMPRESSION: 1. Limited PE study due to contrast bolus timing and breathing motion artifact. No central or proximal segmental PE. Evaluation of distal segmental and subsegmental pulmonary arteries is limited. 2. Interstitial opacities in the bilateral upper lobes may be secondary to interstitial edema or infection. Developing interstitial fibrosis is also a possibility. Electronically signed by: Yoan Hart DO (04/16/2019 9:06 PM) [facility] VTE Prophylaxis Ordered VTE Prophylaxis Devices: Yes VTE Pharmacological Prophylaxi: Yes Assessment/Plan Assessment/Plan ASSESSMENT Dyspnea: ///CHF and pulmonary fibrosis on cta chest No central or proximal segmental PE. Evaluation of distal segmental and subsegmental pulmonary arteries is limited. Interstitial opacities in the bilateral upper lobes may be secondary to interstitial edema or infection. Developing interstitial fibrosis is also a possibility. Acute CHF //diastolic dysfunction CP: Elevated troponin: Chronic immunosuppression: imuran and prednisone HTN: DM2: uncontrolled, BG 500s at home morbid obesity plan 1. TTE, 2. Check TSH, fasting lipids 3. Consult pulmonary 4. serial troponin i 5. admit 6. dvt prophylaxis 7. consult cardiology 58 min pt exam, chart review, > 50% of time spent with exam, chart review, pt care coordination ANILA MCCARTY MD Apr 17, 2019 09:08
--- NOTE | 2019-04-17 09:12 | EKG ---
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
--- NOTE | 2019-04-17 11:35 | NUR ---
Patient arrived to room 208 via bed from ER at 1135. Patient A&OX4. VSS. No complaints of chest pain. Patient Khmer speaking, patient's family helping translate. The patient, ALLIE AVENDANO, 68 y/o, F admitted by BRITTA LEE III, DO, was given written information regarding hospital policies, unit procedures and contact persons. Valuables were checked and noted. Will continue to monitor.
[2019-04-17 12:00] VITALS: BP 134/62
--- NOTE | 2019-04-17 13:39 | CONS ---
DATE OF CONSULTATION: 04/17/2019 ATTENDING PHYSICIAN: Dr. Hernandez REASON FOR CONSULTATION: Dyspnea and pulmonary fibrosis. 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 She came into the hospital with complaint of shortness of breath. She has been having a dry cough. Shortness of breath has been progressive for over a few weeks. The patient had a history of pulmonary fibrosis. This was diagnosed via VAT in [place] about 3 years ago. She has been on prednisone at 5 mg daily. I was able to pull her CAT scans from 2010 and she had interstitial fibrosis at that time. She denies any nausea, vomiting, or diarrhea. No leg edema. Her CT chest was reviewed. There is evidence of interstitial lung disease/fibrosis. It has a nonspecific interstitial pneumonitis pattern. There is probably mild progression since 2010. PAST MEDICAL HISTORY: History of biopsy proven pulmonary fibrosis, etiology not clear, probably NSIP pattern; history of diabetes; and hypertension. PAST SURGICAL HISTORY: VAT in [place] 3 years ago on the left side. ALLERGIES: None. MEDICATIONS: Reviewed as listed in the MRAD including her home medicine prednisone. REVIEW OF SYSTEMS: As discussed in my history of present illness. SOCIAL HISTORY: Nonsmoker. FAMILY HISTORY: Noncontributory to lungs. PHYSICAL EXAMINATION: VITAL SIGNS: Reviewed. Pulse ox 96% on 2 liters. NECK: Supple. LUNGS: With crackles, one-third at the bases. CARDIOVASCULAR: Regular rate. ABDOMEN: Soft. EXTREMITIES: With no pitting edema. LABORATORY DATA: Reviewed. White cell count 7.6 and hemoglobin 13.8. IMPRESSION: 1. The patient with chronic pulmonary fibrosis/interstitial lung disease. Now comes in with some dyspnea and cough, likely related to mild progression of her fibrosis/interstitial lung disease when comparisons were made to the CT from 2010. Reportedly, she had a video-assisted thoracoscopic biopsy 3 years ago in [place] and has been on prednisone since then. The pattern on the CT chest appears to be a likely non-specific interstitial pneumonitis ( NSIP) pattern and unlikely usual interstitial pneumonia.(UIP) 2. No significant tobacco history. RECOMMENDATION: 1. Continue with present oxygen. 2. She may need a 6-minute walk test and we will assess the need for home oxygen. 3. No need for antibiotics or it can be deescalated soon. 4. Lovenox for DVT prophylaxis. 5. She could be discharged in the next 24 hours. Discussed with the patient's family. GRAZYNA ELIAS MD DR: CHARLINE/leonor JOB#: [id number] / [id number] JW
[2019-04-17 15:00] VITALS: BP 120/62
[2019-04-17] MEDS: glipiZIDE 5 MG TABLET PO SCH ×2 (17:00→17:15)
[2019-04-17] MEDS: LINAGLIPTIN 5 MG TABLET PO SCH (17:14)
[2019-04-17] MEDS: predniSONE 5 MG TABLET PO SCH (18:11)
[2019-04-17] MEDS: CALCIUM CARBONATE 500 MG TABLET PO SCH (18:11)
[2019-04-17] MEDS: BENZONATATE 100 MG CAPSULE. PO SCH ×2 (18:12→21:34)
[2019-04-17] MEDS: LISINOPRIL 20 MG TABLET PO SCH (18:13)
[2019-04-17] MEDS: azaTHIOprine 50 MG TABLET PO SCH (18:14)
[2019-04-17] MEDS: ENOXAPARIN 40 MG/0.4 ML SYRINGE. SQ SCH (18:21)
[2019-04-17 19:27] VITALS: BP 137/70
[2019-04-17 23:31] VITALS: BP 124/65
[2019-04-18 00:11] LABS: HEMOGLOBIN A1C 9.8 % (4.8-5.6)
[2019-04-18 03:00] VITALS: BP 116/56
[2019-04-18 04:08] LABS: BASO % 0 % (0-3); EOS % 0 % (0-3); HEMATOCRIT 40.1 % (36.0-47.0); HEMOGLOBIN 13.4 g/dL (12.0-15.5); LYMPH # 0.4 x10^3/uL (1.0-4.8); LYMPH % 7 % (24-48); MEAN CORPUSCULAR HEMOGLOBIN 30 pg (25-35); MEAN CORPUSCULAR HGB CONC 34 g/dL (31-37); MEAN CORPUSCULAR VOLUME 89 fL (79-100); MONO # 0.5 x10^3/uL (0.0-1.1); MONO % 8 % (0-9); NEUT # 5.2 x10^3/uL (1.8-7.7); NEUT % 85 % (31-73); PLATELET COUNT 179 x10^3/uL (140-400); RED BLOOD COUNT 4.53 x10^6/uL (3.50-5.40); RED CELL DISTRIBUTION WIDTH 16.6 % (11.5-14.5); WHITE BLOOD COUNT 6.1 x10^3/uL (4.0-11.0)
[2019-04-18 04:26] LABS: ALBUMIN 2.6 g/dL (3.4-5.0); ALBUMIN/GLOBULIN RATIO 0.6 (1.0-1.7); CALCIUM 8.9 mg/dL (8.5-10.1); CREATININE 0.7 mg/dL (0.6-1.0); GFR 82.7; POTASSIUM 4.5 mmol/L (3.5-5.1); TOTAL BILIRUBIN 0.7 mg/dL (0.2-1.0); TOTAL PROTEIN 6.8 g/dL (6.4-8.2)
[2019-04-18 07:00] VITALS: BP 116/64
[2019-04-18 07:28] LABS: BILIRUBIN,URINE NEGATIVE (NEG); CLARITY,URINE CLEAR; COLOR,URINE YELLOW; NITRITE,URINE NEGATIVE (NEG); PH,URINE 6.5; PROTEIN,URINE NEGATIVE (NEG-TRACE); UROBILINOGEN,URINE 0.2 mg/dL (0.2 mg/dL)
[2019-04-18 07:40] LABS: BACTERIA,URINE 0 /HPF (0-FEW); RBC,URINE RARE /HPF (0-2); SQUAMOUS EPITHELIAL CELL,UR FEW /LPF; WBC,URINE 0 /HPF (0-4)
[2019-04-18] MEDS ORDERED: REGADENOSON 0.4 MG/5 ML DISP.SYRIN. IV ONE (08:45)
[2019-04-18] MEDS ORDERED: FLU VAX QS 2019-20 (36MOS+)/PF 0.5 ML SYRINGE. VAX IM ONE (09:00)
[2019-04-18] MEDS: LINAGLIPTIN 5 MG TABLET PO SCH (10:38)
[2019-04-18] MEDS: predniSONE 5 MG TABLET PO SCH (10:38)
[2019-04-18] MEDS: LISINOPRIL 20 MG TABLET PO SCH (10:39)
[2019-04-18] MEDS: glipiZIDE 5 MG TABLET PO SCH ×2 (10:39→18:15)
[2019-04-18] MEDS: CALCIUM CARBONATE 500 MG TABLET PO SCH (10:39)
[2019-04-18] MEDS: BENZONATATE 100 MG CAPSULE. PO SCH ×2 (10:39→22:06)
[2019-04-18] MEDS: azaTHIOprine 50 MG TABLET PO SCH (10:40)
[2019-04-18 11:00] VITALS: BP 117/56
--- NOTE | 2019-04-18 11:37 | PDOC ---
[employer] PROGRESS NOTE Chief Complaint Chief Complaint Chest pain Shortness of breath History of Present Illness History of Present Illness 04/18/19 Seen in the radiology lab after undergoing stress test Accompanied by granddaughter Pt does not speak Irish; granddaughter is her net programmer Was in good spirits Crackles heard on lung exam Vitals/I&O Vitals/I&O: Vital Signs Date Time Temp Pulse Resp B/P (MAP) Pulse Ox O2 Delivery O2 Flow Rate FiO2 04/18/19 10:39 100 116/64 04/18/19 07:54 95 Nasal Cannula 2.0 04/18/19 07:00 97.8 20 97.8 I & O 04/17/19 04/17/19 04/18/19 15:00 23:00 07:00 Intake Total 120 ml 100 ml Balance 120 ml 100 ml Physical Exam General: Alert, Oriented X3, Cooperative, No acute distress Heart: Regular rate (SR), Normal S1, Normal S2, Other (2./6 systolic murmur to LLS border) Lungs: Crackles Abdomen: Soft, No tenderness Extremities: No cyanosis, Other (trace LE edema, osteoarthritis in hands) Skin: No breakdown, No significant lesion Labs Labs: Laboratory Tests Test 04/17/19 12:24 04/17/19 17:01 04/17/19 21:37 04/18/19 03:30 Glucose (Fingerstick) 124 mg/dL (70-99) 316 mg/dL (70-99) 246 mg/dL (70-99) White Blood Count 6.1 x10^3/uL (4.0-11.0) Red Blood Count 4.53 x10^6/uL (3.50-5.40) Hemoglobin 13.4 g/dL (12.0-15.5) Hematocrit 40.1 % (36.0-47.0) Mean Corpuscular Volume 89 fL (79-100) Mean Corpuscular Hemoglobin 30 pg (25-35) Mean Corpuscular Hemoglobin Concent 34 g/dL (31-37) Red Cell Distribution Width 16.6 % (11.5-14.5) Platelet Count 179 x10^3/uL (140-400) Neutrophils (%) (Auto) 85 % (31-73) Lymphocytes (%) (Auto) 7 % (24-48) Monocytes (%) (Auto) 8 % (0-9) Eosinophils (%) (Auto) 0 % (0-3) Basophils (%) (Auto) 0 % (0-3) Neutrophils # (Auto) 5.2 x10^3/uL (1.8-7.7) Lymphocytes # (Auto) 0.4 x10^3/uL (1.0-4.8) Monocytes # (Auto) 0.5 x10^3/uL (0.0-1.1) Eosinophils # (Auto) 0.0 x10^3/uL (0.0-0.7) Basophils # (Auto) 0.0 x10^3/uL (0.0-0.2) Sodium Level 140 mmol/L (136-145) Potassium Level 4.5 mmol/L (3.5-5.1) Chloride Level 102 mmol/L (98-107) Carbon Dioxide Level 34 mmol/L (21-32) Anion Gap 4 (6-14) Blood Urea Nitrogen 13 mg/dL (7-20) Creatinine 0.7 mg/dL (0.6-1.0) Estimated GFR (Cockcroft-Gault) 82.7 BUN/Creatinine Ratio 19 (6-20) Glucose Level 219 mg/dL (70-99) Calcium Level 8.9 mg/dL (8.5-10.1) Total Bilirubin 0.7 mg/dL (0.2-1.0) Aspartate Amino Transf (AST/SGOT) 26 U/L (15-37) Alanine Aminotransferase (ALT/SGPT) 24 U/L (14-59) Alkaline Phosphatase 55 U/L (46-116) Total Protein 6.8 g/dL (6.4-8.2) Albumin 2.6 g/dL (3.4-5.0) Albumin/Globulin Ratio 0.6 (1.0-1.7) Test 04/18/19 07:00 04/18/19 08:14 Urine Collection Type Unknown Urine Color Yellow Urine Clarity Clear Urine pH 6.5 Urine Specific [place] 1.015 Urine Protein Negative mg/dL (NEG-TRACE) Urine Glucose (UA) 250 mg/dL (NEG) Urine Ketones (Stick) Negative mg/dL (NEG) Urine Blood Negative (NEG) Urine Nitrite Negative (NEG) Urine Bilirubin Negative (NEG) Urine Urobilinogen Dipstick 0.2 mg/dL (0.2 mg/dL) Urine Leukocyte Esterase Negative (NEG) Urine RBC Rare /HPF (0-2) Urine WBC 0 /HPF (0-4) Urine Squamous Epithelial Cells Few /LPF Urine Bacteria 0 /HPF (0-FEW) Glucose (Fingerstick) 151 mg/dL (70-99) Review of Systems Review of Systems: No nausea, no vomiting No headache, no changes in vision Assessment and Plan Assessmemt and Plan Assessment Dyspnea CHF Pulmonary interstitial fibrosis Plan Cardiac monitoring Serial enzymes/EKGs Await results of cardiac stress test DVT prophylaxis Full code Comment Review of Relevant I have reviewed the following items anh (where applicable) has been applied. Medications: Current Medications Medications (Trade) Dose Ordered Sig/Coty Route PRN Reason Start Time Stop Time Status Last Admin Dose Admin Azathioprine (Imuran) 100 mg DAILY PO 04/17/19 13:00 04/18/19 10:40 Benzonatate (Tessalon Perle) 100 mg BID PO 04/17/19 12:00 04/18/19 10:39 Lisinopril (Prinivil) 20 mg DAILY PO 04/17/19 13:00 04/18/19 10:39 Prednisone (Prednisone) 15 mg DAILY PO 04/17/19 13:00 04/18/19 10:38 Calcium Carbonate/ Glycine (Oscal) 500 mg DAILY PO 04/17/19 13:00 04/18/19 10:39 Glipizide (Glucotrol) 20 mg DAILYWBKFT PO 04/17/19 13:00 04/18/19 10:39 Linagliptin (Tradjenta) 5 mg DAILY PO 04/17/19 13:00 04/18/19 10:38 Enoxaparin Sodium (Lovenox 40mg Syringe) 40 mg Q24H SQ 04/17/19 16:00 04/17/19 18:21 Influenza Virus Vaccine Quadrival (Afluria Quad 2019-20 (3yr Up) Syringe) 0.5 ml ONCE ONCE VAX IM 04/18/19 09:00 04/18/19 09:01 DC 04/17/19 17:14 Regadenoson (Lexiscan) 0.4 mg 1X ONCE IV 04/18/19 08:45 04/18/19 08:46 DC 04/18/19 09:58 BRITTA LEE III DO Apr 18, 2019 11:37
--- NOTE | 2019-04-18 13:10 | NUR ---
SS following for discharge planning. Pt is self pay pt. HCFS following for self pay status. Pt is from home and is currently requiring oxygen. No discharge needs noted at this time. SS will continue to follow for discharge planning.
[2019-04-18] MEDS: DOCUSATE SODIUM 100 MG CAPSULE. PO SCH ×2 (13:12→22:06)
--- NOTE | 2019-04-18 13:16 | PDOC ---
PULMONARY PROGRESS NOTES Subjective no soa Vitals Vital Signs Date Time Temp Pulse Resp B/P (MAP) Pulse Ox O2 Delivery O2 Flow Rate FiO2 04/18/19 11:00 99.3 92 20 117/56 (76) 95 Nasal Cannula 3.0 99.3 General: Alert, No acute distress Lungs: Crackles (bases) Cardiovascular: S1 Abdomen: Soft Neuro Exam: Alert Extremities: No Edema Skin: Warm Labs Laboratory Tests Test 04/16/19 19:41 04/16/19 19:47 04/16/19 23:15 04/17/19 03:05 White Blood Count 7.6 x10^3/uL (4.0-11.0) Red Blood Count 4.66 x10^6/uL (3.50-5.40) Hemoglobin 13.8 g/dL (12.0-15.5) Hematocrit 41.4 % (36.0-47.0) Mean Corpuscular Volume 89 fL (79-100) Mean Corpuscular Hemoglobin 30 pg (25-35) Mean Corpuscular Hemoglobin Concent 33 g/dL (31-37) Red Cell Distribution Width 16.6 % (11.5-14.5) Platelet Count 181 x10^3/uL (140-400) Neutrophils (%) (Auto) 81 % (31-73) Lymphocytes (%) (Auto) 11 % (24-48) Monocytes (%) (Auto) 8 % (0-9) Eosinophils (%) (Auto) 0 % (0-3) Basophils (%) (Auto) 0 % (0-3) Neutrophils # (Auto) 6.1 x10^3/uL (1.8-7.7) Lymphocytes # (Auto) 0.8 x10^3/uL (1.0-4.8) Monocytes # (Auto) 0.6 x10^3/uL (0.0-1.1) Eosinophils # (Auto) 0.0 x10^3/uL (0.0-0.7) Basophils # (Auto) 0.0 x10^3/uL (0.0-0.2) Prothrombin Time 12.1 SEC (11.7-14.0) Prothromb Time International Ratio 0.9 (0.8-1.1) D-Dimer (Kirsty) 1.55 ug/mlFEU (0.00-0.50) Sodium Level 134 mmol/L (136-145) 141 mmol/L (136-145) Potassium Level 4.7 mmol/L (3.5-5.1) 3.9 mmol/L (3.5-5.1) Chloride Level 99 mmol/L (98-107) 103 mmol/L (98-107) Carbon Dioxide Level 30 mmol/L (21-32) 36 mmol/L (21-32) Anion Gap 5 (6-14) 2 (6-14) Blood Urea Nitrogen 23 mg/dL (7-20) 17 mg/dL (7-20) Creatinine 0.9 mg/dL (0.6-1.0) 0.7 mg/dL (0.6-1.0) Estimated GFR (Cockcroft-Gault) 61.9 82.7 BUN/Creatinine Ratio 26 (6-20) Glucose Level 369 mg/dL (70-99) 143 mg/dL (70-99) Lactic Acid Level 2.5 mmol/L (0.4-2.0) 1.5 mmol/L (0.4-2.0) Calcium Level 8.9 mg/dL (8.5-10.1) 8.5 mg/dL (8.5-10.1) Total Bilirubin 0.6 mg/dL (0.2-1.0) Aspartate Amino Transf (AST/SGOT) 36 U/L (15-37) Alanine Aminotransferase (ALT/SGPT) 36 U/L (14-59) Alkaline Phosphatase 64 U/L (46-116) Troponin I Quantitative 0.184 ng/mL (0.000-0.055) 0.193 ng/mL (0.000-0.055) 0.168 ng/mL (0.000-0.055) MR-Nus-R-Type Natriuretic Peptide 2988 pg/mL (0-124) Total Protein 7.5 g/dL (6.4-8.2) Albumin 3.1 g/dL (3.4-5.0) Albumin/Globulin Ratio 0.7 (1.0-1.7) Glucose (Fingerstick) 351 mg/dL (70-99) Hemoglobin A1c 9.8 % (4.8-5.6) Triglycerides Level 186 mg/dL (0-150) Cholesterol Level 171 mg/dL (0-200) LDL Cholesterol, Calculated 83 mg/dL (0-100) VLDL Cholesterol, Calculated 37 mg/dL (0-40) Non-HDL Cholesterol Calculated 120 mg/dL (0-129) HDL Cholesterol 51 mg/dL (40-60) Cholesterol/HDL Ratio 3.4 Thyroid Stimulating Hormone (TSH) 1.771 uIU/mL (0.358-3.74) Test 04/17/19 07:43 04/17/19 12:24 04/17/19 17:01 04/17/19 21:37 Glucose (Fingerstick) 100 mg/dL (70-99) 124 mg/dL (70-99) 316 mg/dL (70-99) 246 mg/dL (70-99) Test 04/18/19 03:30 04/18/19 07:00 04/18/19 08:14 04/18/19 11:58 White Blood Count 6.1 x10^3/uL (4.0-11.0) Red Blood Count 4.53 x10^6/uL (3.50-5.40) Hemoglobin 13.4 g/dL (12.0-15.5) Hematocrit 40.1 % (36.0-47.0) Mean Corpuscular Volume 89 fL (79-100) Mean Corpuscular Hemoglobin 30 pg (25-35) Mean Corpuscular Hemoglobin Concent 34 g/dL (31-37) Red Cell Distribution Width 16.6 % (11.5-14.5) Platelet Count 179 x10^3/uL (140-400) Neutrophils (%) (Auto) 85 % (31-73) Lymphocytes (%) (Auto) 7 % (24-48) Monocytes (%) (Auto) 8 % (0-9) Eosinophils (%) (Auto) 0 % (0-3) Basophils (%) (Auto) 0 % (0-3) Neutrophils # (Auto) 5.2 x10^3/uL (1.8-7.7) Lymphocytes # (Auto) 0.4 x10^3/uL (1.0-4.8) Monocytes # (Auto) 0.5 x10^3/uL (0.0-1.1) Eosinophils # (Auto) 0.0 x10^3/uL (0.0-0.7) Basophils # (Auto) 0.0 x10^3/uL (0.0-0.2) Sodium Level 140 mmol/L (136-145) Potassium Level 4.5 mmol/L (3.5-5.1) Chloride Level 102 mmol/L (98-107) Carbon Dioxide Level 34 mmol/L (21-32) Anion Gap 4 (6-14) Blood Urea Nitrogen 13 mg/dL (7-20) Creatinine 0.7 mg/dL (0.6-1.0) Estimated GFR (Cockcroft-Gault) 82.7 BUN/Creatinine Ratio 19 (6-20) Glucose Level 219 mg/dL (70-99) Calcium Level 8.9 mg/dL (8.5-10.1) Total Bilirubin 0.7 mg/dL (0.2-1.0) Aspartate Amino Transf (AST/SGOT) 26 U/L (15-37) Alanine Aminotransferase (ALT/SGPT) 24 U/L (14-59) Alkaline Phosphatase 55 U/L (46-116) Total Protein 6.8 g/dL (6.4-8.2) Albumin 2.6 g/dL (3.4-5.0) Albumin/Globulin Ratio 0.6 (1.0-1.7) Urine Collection Type Unknown Urine Color Yellow Urine Clarity Clear Urine pH 6.5 Urine Specific [place] 1.015 Urine Protein Negative mg/dL (NEG-TRACE) Urine Glucose (UA) 250 mg/dL (NEG) Urine Ketones (Stick) Negative mg/dL (NEG) Urine Blood Negative (NEG) Urine Nitrite Negative (NEG) Urine Bilirubin Negative (NEG) Urine Urobilinogen Dipstick 0.2 mg/dL (0.2 mg/dL) Urine Leukocyte Esterase Negative (NEG) Urine RBC Rare /HPF (0-2) Urine WBC 0 /HPF (0-4) Urine Squamous Epithelial Cells Few /LPF Urine Bacteria 0 /HPF (0-FEW) Glucose (Fingerstick) 151 mg/dL (70-99) 124 mg/dL (70-99) Laboratory Tests Test 04/17/19 17:01 04/17/19 21:37 04/18/19 03:30 04/18/19 07:00 Glucose (Fingerstick) 316 mg/dL (70-99) 246 mg/dL (70-99) White Blood Count 6.1 x10^3/uL (4.0-11.0) Red Blood Count 4.53 x10^6/uL (3.50-5.40) Hemoglobin 13.4 g/dL (12.0-15.5) Hematocrit 40.1 % (36.0-47.0) Mean Corpuscular Volume 89 fL (79-100) Mean Corpuscular Hemoglobin 30 pg (25-35) Mean Corpuscular Hemoglobin Concent 34 g/dL (31-37) Red Cell Distribution Width 16.6 % (11.5-14.5) Platelet Count 179 x10^3/uL (140-400) Neutrophils (%) (Auto) 85 % (31-73) Lymphocytes (%) (Auto) 7 % (24-48) Monocytes (%) (Auto) 8 % (0-9) Eosinophils (%) (Auto) 0 % (0-3) Basophils (%) (Auto) 0 % (0-3) Neutrophils # (Auto) 5.2 x10^3/uL (1.8-7.7) Lymphocytes # (Auto) 0.4 x10^3/uL (1.0-4.8) Monocytes # (Auto) 0.5 x10^3/uL (0.0-1.1) Eosinophils # (Auto) 0.0 x10^3/uL (0.0-0.7) Basophils # (Auto) 0.0 x10^3/uL (0.0-0.2) Sodium Level 140 mmol/L (136-145) Potassium Level 4.5 mmol/L (3.5-5.1) Chloride Level 102 mmol/L (98-107) Carbon Dioxide Level 34 mmol/L (21-32) Anion Gap 4 (6-14) Blood Urea Nitrogen 13 mg/dL (7-20) Creatinine 0.7 mg/dL (0.6-1.0) Estimated GFR (Cockcroft-Gault) 82.7 BUN/Creatinine Ratio 19 (6-20) Glucose Level 219 mg/dL (70-99) Calcium Level 8.9 mg/dL (8.5-10.1) Total Bilirubin 0.7 mg/dL (0.2-1.0) Aspartate Amino Transf (AST/SGOT) 26 U/L (15-37) Alanine Aminotransferase (ALT/SGPT) 24 U/L (14-59) Alkaline Phosphatase 55 U/L (46-116) Total Protein 6.8 g/dL (6.4-8.2) Albumin 2.6 g/dL (3.4-5.0) Albumin/Globulin Ratio 0.6 (1.0-1.7) Urine Collection Type Unknown Urine Color Yellow Urine Clarity Clear Urine pH 6.5 Urine Specific [place] 1.015 Urine Protein Negative mg/dL (NEG-TRACE) Urine Glucose (UA) 250 mg/dL (NEG) Urine Ketones (Stick) Negative mg/dL (NEG) Urine Blood Negative (NEG) Urine Nitrite Negative (NEG) Urine Bilirubin Negative (NEG) Urine Urobilinogen Dipstick 0.2 mg/dL (0.2 mg/dL) Urine Leukocyte Esterase Negative (NEG) Urine RBC Rare /HPF (0-2) Urine WBC 0 /HPF (0-4) Urine Squamous Epithelial Cells Few /LPF Urine Bacteria 0 /HPF (0-FEW) Test 04/18/19 08:14 04/18/19 11:58 Glucose (Fingerstick) 151 mg/dL (70-99) 124 mg/dL (70-99) Medications Active Scripts Medications Dose Route/Sig Max Daily Dose Days Date Category Lisinopril 20 Mg Tablet 1 Tab PO DAILY 04/17/19 Reported Tessalon Perle (Benzonatate) 100 Mg Capsule 1 Cap PO BID 04/17/19 Reported Calcium (Calcium Carbonate) 600 Mg Tablet 600 Mg PO DAILY 04/17/19 Reported Januvia (Sitagliptin Phosphate) 100 Mg Tablet 1 Tab PO DAILY 04/17/19 Reported Imuran (Azathioprine) 50 Mg Tablet 2 Tab PO DAILY 04/17/19 Reported Glipizide 10 Mg Tablet 1 Tab PO DAILYWSUP 04/17/19 Reported Glipizide 10 Mg Tablet 2 Tab PO DAILYWBKFT 04/17/19 Reported Prednisone (Prednisone) 10 Mg Tablet 15 Mg PO DAILY 04/17/19 Reported Impression . 1. The patient with chronic pulmonary fibrosis/interstitial lung disease. Now comes in with some dyspnea and cough, likely related to mild progression of her fibrosis/interstitial lung disease when comparisons were made to the CT from 2010. Reportedly, she had a video-assisted thoracoscopic biopsy 3 years ago in [place] and has been on prednisone since then. The pattern on the CT chest appears to be a likely non-specific interstitial pneumonitis ( NSIP) pattern and unlikely usual interstitial pneumonia.(UIP) 2. No significant tobacco history. Plan . 1. Continue with present oxygen. 2. She may need a 6-minute walk test and we will assess the need for home oxygen. ? can afford, no ins 3. No need for antibiotics or it can be deescalated soon. 4. Lovenox for DVT prophylaxis. 5. She could be discharged after stress test Discussed with the patient's family. GRAZYNA ELIAS MD Apr 18, 2019 13:16
--- NOTE | 2019-04-18 13:54 | RAD ---
MR#: [id number] Date of Study: 04/18/2019 Ordering Physician: POLLY NICOLE, Referring Physician: NEGRITA ROMO Tech: RT Trudy (R) (N) APPROVED REPORT Test Type: Pharmacological Stress Nurse/Tech: Therese Bryan R.N. Test Indications: Chest pain Cardiac History: Hypertension, Diabetes, pulmonary fibrosis Medications: See Electronic Medical Record Medical History: See Electronic Medical Record Resting ECG: NSR Resting Heart Rate: 85 bpm Resting Blood Pressure: 137/60mmHg Pretest Chest Pain: No chest pain Nurse/Tech Notes S1S2, lung sounds diminished Consent: The procedure was explained to the patient in lay terms. Informed consent was witnessed. Louie eout was entered into [facility]. History and Stress Test performed by Therese Bryan R.N. Pharm. Details Pharmacologic stress testing was performed using 0.4mg per 5ml of regadenoson given intravenously ove r 7-10 seconds. Stress Symptoms No chest pain or symptoms. POST EXERCISE Reason for Termination: Infusion complete Target HR: 127 Max HR: 98 bpm Max Blood Pressure: 120/33mmHg Blood Pressure response to exercise: Normal blood pressure response during stress. Chest Pain: No. Arrhythmia: No. ST Change: No. INTERPRETATION Stress EKG Conclusion: No evidence of stress induced EKG changes. Imaging Protocol IMAGE PROTOCOL: Rest Tc-99m/stress Tc-99m 1 day Rest: Stress: Viability: Radiopharm.Tc99m IupllreitLt70m Sestamibi Dose10.6mCi 31mCi Duration 15min. 10min. Img Date 04/18/2019 04/18/2019 Inj-Img Plzq74tqv. 60min. Rest Admin Site:IV - Left ForearmAdministrator:RT Trudy (Zuleyka)(N) Stress Admin Site: IV - Left ForearmAdministrator: RT Trudy (R)(N) STRESS DATA End Diast. Vol.55.0mlAv. Heart Rate91.0bpm End Syst. Vol.13.0mlCO Index BSA0.0L/min Myocardial Mass93.0gEject. Vpuzmqch64.0% Stress Rates Pk. Fill Rate3.84EDV/secLVtime Pk. Fill 174.71msec Pk. Empty Rate5.47ESV/secLVtime Pk. Cozuf694.74msec / Pk. Fill1.17EDV/sec Stress Scores Regional WT1.00Summed WT8.00 Regional WM0.00Summed WM0.00 LV Perfusion Normal perfusion at stress. Wall Motion Normal wall motion. LV Perf. Quant 17 Seg. SSS3.00 17 Seg. SRS11.00 17 Seg. SDS0.00 Stress Defect Extent (% LAD)5.00Rest Defect Extent (% LAD)15.60Rev. Defect Extent (% LAD)0.00 Stress Defect Extent (% LCX) 7.50Rest Defect Extent (% LCX)26.30Rev. Defect Extent (% LCX)0.00 Stress Defect Extent (% RCA)0.00Rest Defect Extent (% RCA)16.70Rev. Defect Extent (% RCA)0.00 Stress Defect Extent (% RENY)4.60Rest Defect Extent (% RENY)24.80Rev. Defect Extent (% RENY)0.00 Other Information Quality:Poor Risk Assessment: Low Risk Conclusion 1. Non-diagnostic EKG due to baseilne TWI. No acute changes. 2. Normal perfusion at stress. Rest images were of poor quality. 3. Normal EF at > 70% 4. Low risk study Signed by : Manolo Connelly, Electronically Approved : 04/18/2019 12:24:40
--- NOTE | 2019-04-18 13:54 | CARD ---
MR#: [id number] Date of Study: 04/17/2019 Ordering Physician: POLLY NICOLE, Referring Physician: POLLY NICOLE Tech: Jessica Cole ANASTASIYA APPROVED REPORT EXAM: Two-dimensional and M-mode echocardiogram with Doppler and color Doppler. Other Information Quality : Good INDICATION Congestive Heart Failure 2D DIMENSIONS RVDd2.8 (2.9-3.5cm)Left Atrium(2D)3.1 (1.6-4.0cm) IVSd1.1 (0.7-1.1cm)Aortic Root(2D)2.9 (2.0-3.7cm) LVDd4.6 (3.9-5.9cm)LVOT Diameter2.0 (1.8-2.4cm) PWd1.1 (0.7-1.1cm)LVDs3.3 (2.5-4.0cm) FS (%) 28.9 %SV54.2 ml LVEF(%)55.7 (>50%) Aortic Valve AoV Peak Nakul.167.9cm/sAoV VTI27.4cm AO Peak GR.11.3mmHgLVOT Peak Nakul.117.1cm/s LVOT VTI 20.54cmAO Mean GR.6mmHg BRENDAN (VMAX)2.62zr1NKA (VTI)2.30cm2 Mitral Valve MV E Xulxqxdm91.3cm/sMV DECEL RPAE543kd MV A Cpfbwfnj900.9cm/sMV CLO85ya E/A Ratio0.7MVA (PHT)5.18cm2 TDI E/Lateral E'7.9E/Medial E'14.4 Tricuspid Valve TR P. Rnyzohmm289im/sRAP VQNTKWZZ8xkOh TR Peak Gr.23cfQqJVBX62lrWj Pulmonary Vein S1 Mbgzngqe28.2cm/sD2 Ccyeqlmj98.4cm/s LEFT VENTRICLE The left ventricle is normal size. There is normal left ventricular wall thickness. The left ventricu lar systolic function is normal. The Ejection Fraction is 60-65%. There is normal LV segmental wall m otion. Transmitral Doppler flow pattern is Grade I-abnormal relaxation pattern. RIGHT VENTRICLE The right ventricle is normal size. The right ventricular systolic function is normal. ATRIA The left atrium size is normal. The right atrium size is normal. The interatrial septum is intact wit h no evidence for an atrial septal defect or patent foramen ovale as noted on 2-D or Doppler imaging. AORTIC VALVE The aortic valve is calcified but opens well. Doppler and Color Flow revealed no significant aortic r egurgitation. There is no significant aortic valvular stenosis. MITRAL VALVE The mitral valve is normal in structure and function. There is no evidence of mitral valve prolapse. There is no mitral valve stenosis. Doppler and Color-flow revealed trace mitral regurgitation. TRICUSPID VALVE The tricuspid valve is normal in structure and function. Doppler and Color Flow revealed mild tricusp id regurgitation. There is severe pulmonary hypertension. The PA pressure was estimated at 78 mmHg. T here is no tricuspid valve stenosis. PULMONIC VALVE The pulmonic valve is not well visualized. Doppler and Color Flow revealed no pulmonic valvular regur gitation. There is no pulmonic valvular stenosis. GREAT VESSELS The aortic root is normal in size. The ascending aorta is normal in size. The IVC is normal in size a nd collapses >50% with inspiration. PERICARDIAL EFFUSION There is no evidence of significant pericardial effusion. Critical Notification Critical Value: No <Conclusion> The left ventricular systolic function is normal. The Ejection Fraction is 60-65%. There is normal LV segmental wall motion. Transmitral Doppler flow pattern is Grade I-abnormal relaxation pattern. Trace mitral regurgitation. Mild tricuspid regurgitation. There is severe pulmonary hypertension. The PA pressure was estimated at 78 mmHg. There is no evidence of significant pericardial effusion. Signed by : Jerry Beckham, Electronically Approved : 04/17/2019 15:25:57
--- NOTE | 2019-04-18 14:20 | PDOC ---
CARDIO Progress Notes Date and Time Date of Service 04/18/19 Time of Evaluation 1210 Subjective Subjective: No Chest Pain, Other (SOA improved ) Vitals Vitals Vital Signs Date Time Temp Pulse Resp B/P (MAP) Pulse Ox O2 Delivery O2 Flow Rate FiO2 04/18/19 11:00 99.3 92 20 117/56 (76) 95 Nasal Cannula 3.0 99.3 Weight Weight [ ] Input and Output Intake and Output Intake and Output 04/18/19 06:59 Intake Total 220 ml Balance 220 ml Intake Oral 220 ml # Voids 2 Laboratory Labs Laboratory Tests Test 04/17/19 17:01 04/17/19 21:37 04/18/19 03:30 04/18/19 07:00 Glucose (Fingerstick) 316 mg/dL (70-99) 246 mg/dL (70-99) White Blood Count 6.1 x10^3/uL (4.0-11.0) Red Blood Count 4.53 x10^6/uL (3.50-5.40) Hemoglobin 13.4 g/dL (12.0-15.5) Hematocrit 40.1 % (36.0-47.0) Mean Corpuscular Volume 89 fL (79-100) Mean Corpuscular Hemoglobin 30 pg (25-35) Mean Corpuscular Hemoglobin Concent 34 g/dL (31-37) Red Cell Distribution Width 16.6 % (11.5-14.5) Platelet Count 179 x10^3/uL (140-400) Neutrophils (%) (Auto) 85 % (31-73) Lymphocytes (%) (Auto) 7 % (24-48) Monocytes (%) (Auto) 8 % (0-9) Eosinophils (%) (Auto) 0 % (0-3) Basophils (%) (Auto) 0 % (0-3) Neutrophils # (Auto) 5.2 x10^3/uL (1.8-7.7) Lymphocytes # (Auto) 0.4 x10^3/uL (1.0-4.8) Monocytes # (Auto) 0.5 x10^3/uL (0.0-1.1) Eosinophils # (Auto) 0.0 x10^3/uL (0.0-0.7) Basophils # (Auto) 0.0 x10^3/uL (0.0-0.2) Sodium Level 140 mmol/L (136-145) Potassium Level 4.5 mmol/L (3.5-5.1) Chloride Level 102 mmol/L (98-107) Carbon Dioxide Level 34 mmol/L (21-32) Anion Gap 4 (6-14) Blood Urea Nitrogen 13 mg/dL (7-20) Creatinine 0.7 mg/dL (0.6-1.0) Estimated GFR (Cockcroft-Gault) 82.7 BUN/Creatinine Ratio 19 (6-20) Glucose Level 219 mg/dL (70-99) Calcium Level 8.9 mg/dL (8.5-10.1) Total Bilirubin 0.7 mg/dL (0.2-1.0) Aspartate Amino Transf (AST/SGOT) 26 U/L (15-37) Alanine Aminotransferase (ALT/SGPT) 24 U/L (14-59) Alkaline Phosphatase 55 U/L (46-116) Total Protein 6.8 g/dL (6.4-8.2) Albumin 2.6 g/dL (3.4-5.0) Albumin/Globulin Ratio 0.6 (1.0-1.7) Urine Collection Type Unknown Urine Color Yellow Urine Clarity Clear Urine pH 6.5 Urine Specific [place] 1.015 Urine Protein Negative mg/dL (NEG-TRACE) Urine Glucose (UA) 250 mg/dL (NEG) Urine Ketones (Stick) Negative mg/dL (NEG) Urine Blood Negative (NEG) Urine Nitrite Negative (NEG) Urine Bilirubin Negative (NEG) Urine Urobilinogen Dipstick 0.2 mg/dL (0.2 mg/dL) Urine Leukocyte Esterase Negative (NEG) Urine RBC Rare /HPF (0-2) Urine WBC 0 /HPF (0-4) Urine Squamous Epithelial Cells Few /LPF Urine Bacteria 0 /HPF (0-FEW) Test 04/18/19 08:14 04/18/19 11:58 Glucose (Fingerstick) 151 mg/dL (70-99) 124 mg/dL (70-99) Microbiology Micro Microbiology 04/16/19 Blood Culture - Preliminary, Resulted NO GROWTH AFTER 1 DAY Physical Exam HEENT: Neck Supple W Full Motion Chest: Symmetric LUNGS: Other (diffuse fine crackles ) Heart: RRR Abdomen: Soft N/T Extremities: No Edema Neurology: alert, oriented, follow commands Assessment Assessment 1. Dyspnea: due to CHF and pulmonary fibrosis/IDL 2. Acute CHF with possible diastolic dysfunction. Echo showed preserved LV systolic function 3. NSTEMI; peaked trop at 0.19. Type II, demand ischemia. MPI without perfusion abnormalities with stress. 4. Chronic immunosuppression: imuran and prednisone 5. HTN: controlled 6. DM2: uncontrolled, BG 500s at home Recommendations Supportive care May discharge from a CV standpoint. F/u in our office with in 3 months as able. EDER DIAZ APRN Apr 18, 2019 14:20
[2019-04-18 15:00] VITALS: BP 113/59
[2019-04-18] MEDS: IPRATRPIUM/ALBUTEROL 0.5/2.5MG 3 ML NEBU. NEB SCH ×2 (15:26→19:46)
[2019-04-18] MEDS: ENOXAPARIN 40 MG/0.4 ML SYRINGE. SQ SCH (16:18)
[2019-04-18] MEDS ORDERED: ACETAMINOPHEN/CODEINE 300/30MG TABLET. PO PRN (18:45)
[2019-04-18] MEDS ORDERED: ONDANSETRON PF 4 MG/2 ML VIAL. IVP PRN (18:45)
[2019-04-18] MEDS ORDERED: DEXTROSE 50% 25 GM / 50ML DISP.SYRIN. IV PRN (18:45)
[2019-04-18] MEDS ORDERED: ACETAMINOPHEN 500 MG TABLET PO PRN (18:45)
[2019-04-18 19:00] VITALS: BP 142/69
[2019-04-18] MEDS: INSULIN LISPRO 300 UNITS/3 ML VIAL. SQ SCH (22:21)
[2019-04-18] MEDS ORDERED: INSULIN LISPRO 300 UNITS/3 ML VIAL. SQ ONE (22:30)
[2019-04-18 23:00] VITALS: BP 131/63
[2019-04-19 03:10] VITALS: BP 125/66
[2019-04-19 07:00] VITALS: BP 110/53
[2019-04-19] MEDS: INSULIN LISPRO 300 UNITS/3 ML VIAL. SQ SCH ×3 (08:00→16:55)
[2019-04-19] MEDS: IPRATRPIUM/ALBUTEROL 0.5/2.5MG 3 ML NEBU. NEB SCH ×4 (08:10→20:16)
[2019-04-19] MEDS: glipiZIDE 5 MG TABLET PO SCH ×2 (08:47→16:52)
[2019-04-19] MEDS: DOCUSATE SODIUM 100 MG CAPSULE. PO SCH ×2 (08:47→21:18)
[2019-04-19] MEDS: CALCIUM CARBONATE 500 MG TABLET PO SCH (08:48)
[2019-04-19] MEDS: LISINOPRIL 20 MG TABLET PO SCH (08:48)
[2019-04-19] MEDS: predniSONE 5 MG TABLET PO SCH (08:49)
[2019-04-19] MEDS: BENZONATATE 100 MG CAPSULE. PO SCH ×2 (08:49→21:18)
[2019-04-19] MEDS: LINAGLIPTIN 5 MG TABLET PO SCH (08:49)
[2019-04-19] MEDS: azaTHIOprine 50 MG TABLET PO SCH (08:49)
[2019-04-19 10:57] VITALS: BP 119/60
--- NOTE | 2019-04-19 11:08 | PDOC ---
[facility] PROGRESS NOTE Chief Complaint Chief Complaint Chest pain Shortness of breath History of Present Illness History of Present Illness 04/19/19 Pt seen and examined Pt was eating breakfast and feeling better. Pt wheezing has cleared up quite a bit. I talked extensively to pt's daughter and granddaughter about her current medications and treatment plan. Planned for 6 min walk and hopeful discharge today. URSULA RN 04/18/19 Seen in the radiology lab after undergoing stress test Accompanied by granddaughter Pt does not speak [place]; granddaughter is her sales and marketing coordinator Was in good spirits Crackles heard on lung exam Vitals/I&O Vitals/I&O: Vital Signs Date Time Temp Pulse Resp B/P (MAP) Pulse Ox O2 Delivery O2 Flow Rate FiO2 04/19/19 10:57 97.9 85 18 119/60 (79) 95 Nasal Cannula 2.0 97.9 I & O 04/18/19 04/18/19 04/19/19 15:00 23:00 07:00 Intake Total 400 ml 180 ml 100 ml Output Total 0 ml Balance 400 ml 180 ml 100 ml Physical Exam General: Alert, Oriented X3, Cooperative, No acute distress Heart: Regular rate (SR), Normal S1, Normal S2, Other (2./6 systolic murmur to LLS border) Lungs: Crackles (bases) Abdomen: Soft, No tenderness Extremities: No cyanosis, Other (trace LE edema, osteoarthritis in hands) Skin: No breakdown, No significant lesion Labs Labs: Laboratory Tests Test 04/18/19 11:58 04/18/19 16:45 04/18/19 20:55 04/19/19 07:35 Glucose (Fingerstick) 124 mg/dL (70-99) 290 mg/dL (70-99) 369 mg/dL (70-99) 74 mg/dL (70-99) Review of Systems Review of Systems: Denies pain Denies weakness Assessment and Plan Assessmemt and Plan Assessment Dyspnea CHF Pulmonary interstitial fibrosis Plan Probable discharge today after 6 min walk Prescribed Medrol Home meds Cardiac monitoring DVT prophylaxis Full code Comment Review of Relevant I have reviewed the following items anh (where applicable) has been applied. Medications: Current Medications Medications (Trade) Dose Ordered Sig/Coty Route PRN Reason Start Time Stop Time Status Last Admin Dose Admin Docusate Sodium (Colace) 100 mg BID PO 04/18/19 11:15 04/19/19 08:47 Albuterol/ Ipratropium (Duoneb) 3 ml RTQID NEB 04/18/19 16:00 04/19/19 08:10 Levofloxacin (Levaquin) 500 mg QHS PO 04/18/19 21:00 04/18/19 22:06 Insulin Human Lispro (HumaLOG) 0-9 UNITS TIDWMEALS SQ 04/18/19 19:00 04/18/19 22:21 Insulin Human Lispro (HumaLOG) 15 units 1X ONCE SQ 04/18/19 22:30 04/18/19 22:31 DC 04/18/19 22:25 BRITTA LEE III DO Apr 19, 2019 11:08
[2019-04-19 15:00] VITALS: BP 116/54
[2019-04-19] MEDS: ENOXAPARIN 40 MG/0.4 ML SYRINGE. SQ SCH (16:50)
[2019-04-19 19:00] VITALS: BP 119/56
[2019-04-19 23:00] VITALS: BP 136/56
[2019-04-20 03:00] VITALS: BP 114/61
[2019-04-20 04:49] LABS: ALBUMIN 2.6 g/dL (3.4-5.0); ALBUMIN/GLOBULIN RATIO 0.7 (1.0-1.7); CALCIUM 8.6 mg/dL (8.5-10.1); CREATININE 0.6 mg/dL (0.6-1.0); GFR 98.8; POTASSIUM 3.7 mmol/L (3.5-5.1); TOTAL BILIRUBIN 0.4 mg/dL (0.2-1.0); TOTAL PROTEIN 6.6 g/dL (6.4-8.2)
[2019-04-20 07:00] VITALS: BP 126/69
[2019-04-20] MEDS: INSULIN LISPRO 300 UNITS/3 ML VIAL. SQ SCH ×3 (08:00→17:28)
[2019-04-20] MEDS: BENZONATATE 100 MG CAPSULE. PO SCH ×2 (08:13→20:40)
[2019-04-20] MEDS: DOCUSATE SODIUM 100 MG CAPSULE. PO SCH ×2 (08:14→20:41)
[2019-04-20] MEDS: predniSONE 5 MG TABLET PO SCH (08:14)
[2019-04-20] MEDS: CALCIUM CARBONATE 500 MG TABLET PO SCH (08:14)
[2019-04-20] MEDS: LINAGLIPTIN 5 MG TABLET PO SCH (08:15)
[2019-04-20] MEDS: azaTHIOprine 50 MG TABLET PO SCH (08:15)
[2019-04-20] MEDS: LISINOPRIL 20 MG TABLET PO SCH (08:16)
[2019-04-20] MEDS: glipiZIDE 5 MG TABLET PO SCH ×2 (08:16→17:23)
[2019-04-20] MEDS: IPRATRPIUM/ALBUTEROL 0.5/2.5MG 3 ML NEBU. NEB SCH ×4 (08:27→19:24)
[2019-04-20 11:32] VITALS: BP 141/59
--- NOTE | 2019-04-20 11:54 | PDOC ---
[facility] PROGRESS NOTE Chief Complaint Chief Complaint Chest pain Shortness of breath History of Present Illness History of Present Illness 04/20/19 Pt seen and examined in chair Joined by family Discussed obtaining home O2 with family Crackles heard on lung exam URSULA SMYTH 04/19/19 Pt seen and examined Pt was eating breakfast and feeling better. Pt wheezing has cleared up quite a bit. I talked extensively to pt's daughter and granddaughter about her current medications and treatment plan. Planned for 6 min walk and hopeful discharge today. URSULA SMYTH 04/18/19 Seen in the radiology lab after undergoing stress test Accompanied by granddaughter Pt does not speak [place]; granddaughter is her plasma processing centrifuge operator Was in good spirits Crackles heard on lung exam Vitals/I&O Vitals/I&O: Vital Signs Date Time Temp Pulse Resp B/P (MAP) Pulse Ox O2 Delivery O2 Flow Rate FiO2 04/20/19 11:32 98.3 90 20 141/59 (86) 92 Nasal Cannula 3.0 98.3 I & O 04/19/19 04/19/19 04/20/19 14:59 22:59 06:59 Intake Total 240 ml 330 ml 100 ml Output Total 425 ml Balance -185 ml 330 ml 100 ml Physical Exam General: Alert, Oriented X3, Cooperative, No acute distress Heart: Regular rate (SR), Normal S1, Normal S2 Lungs: Crackles (bases), Other (Harsh cough on exam) Abdomen: Soft, No tenderness Extremities: No cyanosis, Other (trace LE edema, osteoarthritis in hands) Skin: No breakdown, No significant lesion Labs Labs: Laboratory Tests Test 04/19/19 16:47 04/19/19 21:17 04/20/19 03:00 04/20/19 08:11 Glucose (Fingerstick) 303 mg/dL (70-99) 249 mg/dL (70-99) 88 mg/dL (70-99) Sodium Level 141 mmol/L (136-145) Potassium Level 3.7 mmol/L (3.5-5.1) Chloride Level 105 mmol/L (98-107) Carbon Dioxide Level 33 mmol/L (21-32) Anion Gap 3 (6-14) Blood Urea Nitrogen 16 mg/dL (7-20) Creatinine 0.6 mg/dL (0.6-1.0) Estimated GFR (Cockcroft-Gault) 98.8 BUN/Creatinine Ratio 27 (6-20) Glucose Level 76 mg/dL (70-99) Calcium Level 8.6 mg/dL (8.5-10.1) Total Bilirubin 0.4 mg/dL (0.2-1.0) Aspartate Amino Transf (AST/SGOT) 25 U/L (15-37) Alanine Aminotransferase (ALT/SGPT) 16 U/L (14-59) Alkaline Phosphatase 47 U/L (46-116) Total Protein 6.6 g/dL (6.4-8.2) Albumin 2.6 g/dL (3.4-5.0) Albumin/Globulin Ratio 0.7 (1.0-1.7) Test 04/20/19 11:24 Glucose (Fingerstick) 162 mg/dL (70-99) Review of Systems Review of Systems: No nausea, no vomiting No headache, no loss of vision Assessment and Plan Assessmemt and Plan Assessment CHF Shortness of breath Plan Obtain home O2 for discharge Mucinex IV antibiotics Home meds Full code Comment Review of Relevant I have reviewed the following items anh (where applicable) has been applied. BRITTA LEE III DO Apr 20, 2019 11:54
[2019-04-20 14:31] VITALS: BP 122/65
[2019-04-20] MEDS: ENOXAPARIN 40 MG/0.4 ML SYRINGE. SQ SCH (17:24)
[2019-04-20 19:00] VITALS: BP 158/67
[2019-04-20 22:07] VITALS: BP 124/69
[2019-04-21 03:15] VITALS: BP 101/54
[2019-04-21 04:41] LABS: ALBUMIN 2.6 g/dL (3.4-5.0); ALBUMIN/GLOBULIN RATIO 0.6 (1.0-1.7); CALCIUM 8.9 mg/dL (8.5-10.1); CREATININE 0.6 mg/dL (0.6-1.0); GFR 98.8; POTASSIUM 3.9 mmol/L (3.5-5.1); TOTAL BILIRUBIN 0.7 mg/dL (0.2-1.0); TOTAL PROTEIN 6.8 g/dL (6.4-8.2)
[2019-04-21 07:14] VITALS: BP 133/76
[2019-04-21] MEDS: IPRATRPIUM/ALBUTEROL 0.5/2.5MG 3 ML NEBU. NEB SCH ×3 (07:44→15:52)
[2019-04-21] MEDS: glipiZIDE 5 MG TABLET PO SCH (08:00)
[2019-04-21] MEDS: INSULIN LISPRO 300 UNITS/3 ML VIAL. SQ SCH ×2 (08:00→12:28)
[2019-04-21] MEDS: DOCUSATE SODIUM 100 MG CAPSULE. PO SCH (08:28)
[2019-04-21] MEDS: azaTHIOprine 50 MG TABLET PO SCH (08:29)
[2019-04-21] MEDS: predniSONE 5 MG TABLET PO SCH (08:29)
[2019-04-21] MEDS: CALCIUM CARBONATE 500 MG TABLET PO SCH (08:29)
[2019-04-21] MEDS: LISINOPRIL 20 MG TABLET PO SCH (08:29)
[2019-04-21] MEDS: BENZONATATE 100 MG CAPSULE. PO SCH (08:29)
[2019-04-21] MEDS: LINAGLIPTIN 5 MG TABLET PO SCH (08:31)
[2019-04-21 10:55] VITALS: BP 139/68
--- NOTE | 2019-04-21 11:53 | PDOC ---
[facility] [facility] PROGRESS NOTE Chief Complaint Chief Complaint Chest pain Shortness of breath History of Present Illness History of Present Illness 04/21/19 Pt seen and examined in chair Family was at beside Pt complains of being cold Discussed obtaining home O2 prior to discharge URSULA SMYTH 04/20/19 Pt seen and examined in chair Joined by family Discussed obtaining home O2 with family Crackles heard on lung exam URSULA SMYTH 04/19/19 Pt seen and examined Pt was eating breakfast and feeling better. Pt wheezing has cleared up quite a bit. I talked extensively to pt's daughter and granddaughter about her current medications and treatment plan. Planned for 6 min walk and hopeful discharge today. URSULA SMYTH 04/18/19 Seen in the radiology lab after undergoing stress test Accompanied by granddaughter Pt does not speak [place]; granddaughter is her ios programmer Was in good spirits Crackles heard on lung exam Vitals/I&O Vitals/I&O: Vital Signs Date Time Temp Pulse Resp B/P (MAP) Pulse Ox O2 Delivery O2 Flow Rate FiO2 04/21/19 11:46 Nasal Cannula 3.0 04/21/19 10:55 98.9 88 22 139/68 (91) 91 98.9 I & O 04/20/19 04/20/19 04/21/19 15:00 23:00 07:00 Intake Total 360 ml 100 ml 300 ml Output Total 0 ml Balance 360 ml 100 ml 300 ml Physical Exam General: Alert, Oriented X3, Cooperative, No acute distress Heart: Regular rate (SR), Normal S1, Normal S2 Lungs: Crackles (bases), Other (Harsh cough on exam) Abdomen: Soft, No tenderness Extremities: No cyanosis, Other (trace LE edema, osteoarthritis in hands) Skin: No breakdown, No significant lesion Labs Labs: Laboratory Tests Test 04/20/19 17:14 04/20/19 20:42 04/21/19 03:40 04/21/19 07:02 Glucose (Fingerstick) 329 mg/dL (70-99) 197 mg/dL (70-99) 75 mg/dL (70-99) Sodium Level 142 mmol/L (136-145) Potassium Level 3.9 mmol/L (3.5-5.1) Chloride Level 104 mmol/L (98-107) Carbon Dioxide Level 35 mmol/L (21-32) Anion Gap 3 (6-14) Blood Urea Nitrogen 18 mg/dL (7-20) Creatinine 0.6 mg/dL (0.6-1.0) Estimated GFR (Cockcroft-Gault) 98.8 BUN/Creatinine Ratio 30 (6-20) Glucose Level 67 mg/dL (70-99) Calcium Level 8.9 mg/dL (8.5-10.1) Total Bilirubin 0.7 mg/dL (0.2-1.0) Aspartate Amino Transf (AST/SGOT) 26 U/L (15-37) Alanine Aminotransferase (ALT/SGPT) 21 U/L (14-59) Alkaline Phosphatase 47 U/L (46-116) Total Protein 6.8 g/dL (6.4-8.2) Albumin 2.6 g/dL (3.4-5.0) Albumin/Globulin Ratio 0.6 (1.0-1.7) Test 04/21/19 11:43 Glucose (Fingerstick) 161 mg/dL (70-99) Review of Systems Review of Systems: No nausea, no vomiting No chest pain, no palpitations Assessment and Plan Assessmemt and Plan Assessment Pulmonary fibrosis Congestive heart failure Hypertension Diabetes mellitus Plan Discharge today Home O2 Home meds Comment Review of Relevant I have reviewed the following items anh (where applicable) has been applied. Medications: Current Medications Medications (Trade) Dose Ordered Sig/Coty Route PRN Reason Start Time Stop Time Status Last Admin Dose Admin Guaifenesin (Mucinex) 600 mg BID PO 04/20/19 12:30 04/21/19 08:29 BRITTA LEE III DO Apr 21, 2019 11:53
--- NOTE | 2019-04-21 12:41 | NUR ---
SS following up with discharge planning. Pt is self pay pt. SS discussed with [facility] and pt is not a citizen. SS was notified that pt would require oxygen at discharge. SS currently awaiting six minute walk to be completed. SS provided pt's RN with private pay cost for oxygen. Through [employer], ; fax [phone]. Pt will need to pay $144.65 prior to leaving the hospital for concentrator and portability. Pt is Divehi speaking only. SS will await six minute walk results and will proceed accordingly.
--- NOTE | 2019-04-21 14:09 | NUR ---
SS following up with discharge planning. SS phoned and faxed script for oxygen and clinical to [employer], ; fax [phone]. Pt provided with private pay cost and [employer] number to provide payment. Pt's RN to call SS once pt has completed call.
--- NOTE | 2019-04-21 17:30 | NUR ---
Discharge Note: CAMERON AVENDANO Discharge instructions and discharge home medications reviewed with Family Member and a copy given. All questions have been answered and understanding verbalized. The following instructions and handouts were given: CP, CHF, home oxygen use Discontinued lines and drains: Peripheral IV intact. Patient discharged to Home or Self Care with Family Member via Wheelchair
--- NOTE | 2019-04-22 09:36 | DS ---
DATE OF DISCHARGE: 04/21/2019 ADMISSION DIAGNOSES: Chest pain, elevated troponin and congestive heart failure. DISCHARGE DIAGNOSES: Pulmonary fibrosis, resolving congestive heart failure and resolving atypical chest pain. HOSPITAL COURSE: The patient is a pleasant elderly female, who basically presented with heart failure and chest discomfort. Her troponin was little high. We did consult Cardiology and Pulmonary. We diuresed her. Check serial enzymes, serial EKGs. Over the next few days, we were able to get her baseline. Yesterday, we discovered that she was on Imuran for pulmonary fibrosis. We did a 6-minute walk. She was requiring high dose oxygen. We were able to arrange that, her long-term prognosis is probably poor, but clinically she looked great yesterday. Her heart tones are normal. Lungs were mostly clear. We discharged to home with home oxygen. DISPOSITION: Home with home oxygen. ACTIVITY: As tolerated. DIET: Low sodium. MEDICATIONS: Please see the MRAD. TOTAL TIME: 33 minutes. BRITTA LEE DO DR: BIANKA/leonor JOB#: [id number] / [id number]
== END 2019-04-21 17:30 | disposition home or self-care (01) | DRG 280 ==
LOC: ER 19:24 → ED HOLD 20:40 → 2 NORTH 04-17 11:40
PROVIDERS: ADMIT Internal Medicine; ATTEND Internal Medicine
DX: I11.0 Hypertensive heart disease with heart failure (principal); I21.4 Non-ST elevation (NSTEMI) myocardial infarction; I50.31 Acute diastolic (congestive) heart failure; R07.89 Other chest pain; E66.01 Morbid (severe) obesity due to excess calories; Z68.30 Body mass index [BMI] 30.0-30.9, adult; D89.9 Disorder involving the immune mechanism, unspecified; J84.89 Other specified interstitial pulmonary diseases; J84.112 Idiopathic pulmonary fibrosis; Z82.49 Family history of ischemic heart disease and other diseases of the circulatory system; E11.65 Type 2 diabetes mellitus with hyperglycemia
CPT/HCPCS: 36415; 71045; 71275; 78452; 80048; 80053; 80061; 81001; 82962; 83036; 83605; 83880; 84443; 84484; 85025; 85379; 85610; 87040; 90471; 90686; 93005; 93017; 93306; 94618; 94640; 94760; 96361; 96374; 96375; A9500; J1650; J1815; J1940; J1956; J2785; J7030; J7500; J7512; J7620; Q9967; 97110; 97116; 97530; 97535; 99285-25; G0378

== ENCOUNTER 2019-09-30 10:07 | Emergency (ER) | payer SELFPAY ==
[~2019-09-30] VITALS: Ht 157.5 cm; Wt 86.3 kg
[~2019-09-30 10:07] MED LIST: AZAT50TA20 PO; BENZ100C PO; CALC600T4 PO; GLIP10TA13 PO; LISI-334 PO; PRED-220 PO; SITA100T PO
--- NOTE | 2019-09-30 11:09 | PHYS DOC ---
Past Medical History Past Medical History: Diabetes-Type II, Hypertension Past Surgical History: No Surgical History Smoking Status: Never Smoker Alcohol Use: None Drug Use: None Adult General Chief Complaint Chief Complaint: BACK PAIN OR INJURY HPI HPI Patient is a 69 yea right flank pain for the past weeks. Patient states this pain is been on and off, worse at night. States no change in her urination. States no recent fevers. States no nausea, vomiting, diarrhea. States she is a diabetic, however she has not checked her blood sugar for quite some time. Patient states she has not taken any medications for this discomfort. States she has not had it this bad for quite some time. Review of Systems Review of Systems Constitutional: Denies fever or chills [] Eyes: Denies change in visual acuity, redness, or eye pain [] HENT: Denies nasal congestion or sore throat [] Respiratory: Denies cough denies any change in shortness of breath, reports she is chronically short of breath due to pulmonary fibrosis. [] Cardiovascular: No additional information not addressed in HPI [] GI: Denies abdominal pain, nausea, vomiting, bloody stools or diarrhea [] : Denies dysuria or hematuria [] Musculoskeletal: Denies back pain or joint pain reports right flank pain [] Integument: Denies rash or skin lesions [] Neurologic: Denies headache, focal weakness or sensory changes [] Endocrine: Denies polyuria or polydipsia [] All other systems were reviewed and found to be within normal limits, except as documented in this note. Current Medications Current Medications Current Medications Medications (Trade) Dose Ordered Sig/Coty Start Time Stop Time Status Last Admin Dose Admin Magnesium Sulfate/ Dextrose 100 ml @ 100 mls/hr 1X ONCE 09/30/19 12:00 09/30/19 12:50 DC 09/30/19 12:04 100 MLS/HR Allergies Allergies Allergies Coded Allergies Type Severity Reaction Last Updated Verified No Known Drug Allergies 04/16/19 No Physical Exam Physical Exam Constitutional: Well developed, well nourished, no acute distress, non-toxic a ppearance. [] HENT: Normocephalic, atraumatic, bilateral external ears normal, oropharynx moist, no oral exudates, nose normal. [] Eyes: PERRLA, EOMI, conjunctiva normal, no discharge. [] Neck: Normal range of motion, no tenderness, supple, no stridor. [] Cardiovascular:Heart rate regular rhythm, no murmur [] Lungs & Thorax: Faint upper lobe wheezing noted [] Abdomen: Bowel sounds normal, soft, no tenderness, no masses, no pulsatile masses. [] Skin: Warm, dry, no erythema, no rash. [] Back: No tenderness, no CVA tenderness. [] Extremities: No tenderness, no cyanosis, no clubbing, ROM intact, no edema. [] Neurologic: Alert and oriented X 3, normal motor function, normal sensory function, no focal deficits noted. [] Psychologic: Affect normal, judgement normal, mood normal. [] Current Patient Data Vital Signs Vital Signs Date Time Temp Pulse Resp B/P (MAP) Pulse Ox O2 Delivery O2 Flow Rate FiO2 09/30/19 12:30 78 23 122/59 (80) 98 Nasal Cannula 4.0 09/30/19 10:56 97.8 97.8 Lab Values Laboratory Tests Test 09/30/19 10:30 09/30/19 10:45 White Blood Count 5.2 x10^3/uL (4.0-11.0) Red Blood Count 4.54 x10^6/uL (3.50-5.40) Hemoglobin 13.4 g/dL (12.0-15.5) Hematocrit 40.6 % (36.0-47.0) Mean Corpuscular Volume 90 fL (79-100) Mean Corpuscular Hemoglobin 30 pg (25-35) Mean Corpuscular Hemoglobin Concent 33 g/dL (31-37) Red Cell Distribution Width 17.0 % (11.5-14.5) H Platelet Count 178 x10^3/uL (140-400) Neutrophils (%) (Auto) 67 % (31-73) Lymphocytes (%) (Auto) 17 % (24-48) L Monocytes (%) (Auto) 11 % (0-9) H Eosinophils (%) (Auto) 4 % (0-3) H Basophils (%) (Auto) 1 % (0-3) Neutrophils # (Auto) 3.5 x10^3/uL (1.8-7.7) Lymphocytes # (Auto) 0.9 x10^3/uL (1.0-4.8) L Monocytes # (Auto) 0.6 x10^3/uL (0.0-1.1) Eosinophils # (Auto) 0.2 x10^3/uL (0.0-0.7) Basophils # (Auto) 0.0 x10^3/uL (0.0-0.2) Sodium Level 136 mmol/L (136-145) Potassium Level 4.2 mmol/L (3.5-5.1) Chloride Level 98 mmol/L (98-107) Carbon Dioxide Level 29 mmol/L (21-32) Anion Gap 9 (6-14) Blood Urea Nitrogen 9 mg/dL (7-20) Creatinine 0.7 mg/dL (0.6-1.0) Estimated GFR (Cockcroft-Gault) 82.5 BUN/Creatinine Ratio 13 (6-20) Glucose Level 308 mg/dL (70-99) H Lactic Acid Level 1.6 mmol/L (0.4-2.0) Calcium Level 8.7 mg/dL (8.5-10.1) Magnesium Level 1.3 mg/dL (1.8-2.4) L Total Bilirubin 0.8 mg/dL (0.2-1.0) Aspartate Amino Transferase (AST) 27 U/L (15-37) Alanine Aminotransferase (ALT) 28 U/L (14-59) Alkaline Phosphatase 54 U/L (46-116) Troponin I Quantitative < 0.017 ng/mL (0.000-0.055) Total Protein 6.6 g/dL (6.4-8.2) Albumin 3.3 g/dL (3.4-5.0) L Albumin/Globulin Ratio 1.0 (1.0-1.7) Lipase 268 U/L (73-393) Urine Collection Type Unknown Urine Color Yellow Urine Clarity Clear Urine pH 5.0 (<5.0-8.0) Urine Specific Fajardo 1.025 (1.000-1.030) Urine Protein Negative mg/dL (NEG-TRACE) Urine Glucose (UA) >=1000 mg/dL (NEG) Urine Ketones (Stick) Negative mg/dL (NEG) Urine Blood Negative (NEG) Urine Nitrite Negative (NEG) Urine Bilirubin Negative (NEG) Urine Urobilinogen Dipstick 0.2 mg/dL (0.2 mg/dL) Urine Leukocyte Esterase Negative (NEG) Urine RBC Occ /HPF (0-2) Urine WBC Occ /HPF (0-4) Urine Squamous Epithelial Cells Few /LPF Urine Bacteria Few /HPF (0-FEW) Laboratory Tests 09/30/19 10:30 Laboratory Tests 09/30/19 10:30 EKG EKG [] Radiology/Procedures Radiology/Procedures Findings: Evaluation of solid viscera, bowel and vasculature is compromised by the noncontrast technique. Extensive interstitial markings and intralobular septal thickening seen in both lung bases. Could represent a component of chronic fibrosis, versus more acute pulmonary edema or interstitial infiltrate. Coronary artery calcifications are seen. Heterogeneous density of the liver, could be due to asymmetric geographic fatty infiltration. Cannot exclude hepatic mass. Spleen is not enlarged. Pancreas appears unremarkable. No evidence of adrenal mass. Kidneys demonstrate no evidence of hydronephrosis or calculus. No evidence of ureteric dilatation or ureteric calculus. Note that the distal ureters are difficult to visualize, more so on the left, due to left hip replacement artifact. Mild perinephric stranding, bilaterally symmetric, could be due to chronic medical renal disease. Linear layering density at the dependent gallbladder, compatible with gallstones. Gallbladder is not abnormally distended. Aorta is calcified, without evidence of aneurysmal dilatation. No evidence of pathologic lymph node enlargement. Stomach is not distended, and demonstrates no apparent abnormality. No significant small bowel distention. No evidence of acute colitis. [id number] retained stool through the colon. The appendix appears normal. Small anterior abdominal wall fat-containing hernia. No evidence of pneumoperitoneum. No significant ascites. Urinary bladder is not distended, there may be some wall thickening. Visualization of the urinary bladder and pelvis very suboptimal due to artifact from left hip replacement. Multilevel diffuse degenerative thoracolumbar spondylosis with spinal, neural foraminal and lateral recess stenosis of both the lower thoracic spine and the lumbar spine. Loss of height of the L3 vertebral body and to lesser extent L4 and L5 vertebral bodies, have a chronic appearance. No definite acute cortical break is seen to suggest an acute fracture unless suggested by clinical history. Degenerative changes at the right hip. IMPRESSION: 1. Heterogeneous liver density pattern. Evaluation is limited due to noncontrast technique, and this could represent asymmetric geographic fatty infiltration, but a hepatic mass is not excludable. Recommend further outpatient imaging workup with either MRI of the liver, or if that is not feasible, multiphase CT of the liver. 2. Interstitial opacities in both lung bases, suspicious for acute pulmonary edema or infiltrate, although more chronic fibrosis could also contribute to these findings. 3. Cholelithiasis. 4. Suboptimal urinary bladder visualization, but wall thickening raises the question of cystitis or mass. Consider urology consult or cystoscopy. 5. Mild loss of height of lower lumbar vertebrae, probably chronic mild fractures. 6. Thoracolumbar spondylosis with stenosis. Electronically signed by: Heber Ireland MD (09/30/2019 11:44 AM) [id number] [] Course & Med Decision Making Course & Med Decision Making Pertinent Labs and Imaging studies reviewed. (See chart for details) [Patient noted to have half finished bottle of Bactrim from August 2019 and medication list. Also noted to have recent prescription from [facility] for Cipro, filled 09/25/2019 with 7-day course, should have 2 days doses remain. Patient reports she has no idea why she was taking this medication. Bottle noted to be empty at this time. Discussed findings with patient, recommend patient to continue to take her Cipro she was previously prescribed. Patient does report she does not use her oxygen at night even though she is supposed to. Discussed with patient that this is probably recommended as if she has continued breathing difficulty at night, this to be causing some increased discomfort. Patient in agreement to use her oxygen on that. Discussed importance of rest, hydration, and sure she takes her diabetes medications. Patient family member does manage patient medications for her Dragon Disclaimer Dragon Disclaimer This electronic medical record was generated, in whole or in part, using a voice recognition dictation system. Departure Departure Impression: Primary Impression: Hypomagnesemia Additional Impressions: Pulmonary fibrosis Fatigue Disposition: HOME, SELF-CARE Condition: STABLE Referrals: NO PCP (PCP) Patient Instructions: Hypomagnesemia, Oxygen Use at Home Additional Instructions: Carey hablemos, es importante a nuno los medicinas para diabetes todo los holder carey recetado. Los pastillas que recetaron en [facility], sigue tomandalos para los ultimo 2 holder de la receta. Usar bailey oxigeno en la noche a prevenir mas dificultad respirando y geri puede ser lo que cause el dolor en bailey lado. Deberias seguir con [facility] en carey 3-4 holder para evaluar carey siente despues hoy. /As we discussed it is important to take your diabetes medications every day as prescribed. The pills that they gave you at the [facility] the other day, keep taking those, for the last 2 days of the prescription. Use your oxygen at night to prevent more breathing difficulty, and this may be the cause of your pain in your side. You should follow-up in the [facility] in the next 3 to 4 days to see how you are feeling after your visit today. Problem Qualifiers Additional Impressions: Fatigue Fatigue type: unspecified Qualified Codes: R53.83 - Other fatigue GONZALO RANGEL APRN Sep 30, 2019 11:09
[2019-09-30 11:21] LABS: BASO % 1 % (0-3); EOS # 0.2 x10^3/uL (0.0-0.7); EOS % 4 % (0-3); HEMATOCRIT 40.6 % (36.0-47.0); HEMOGLOBIN 13.4 g/dL (12.0-15.5); LYMPH # 0.9 x10^3/uL (1.0-4.8); LYMPH % 17 % (24-48); MEAN CORPUSCULAR HEMOGLOBIN 30 pg (25-35); MEAN CORPUSCULAR HGB CONC 33 g/dL (31-37); MEAN CORPUSCULAR VOLUME 90 fL (79-100); MONO # 0.6 x10^3/uL (0.0-1.1); MONO % 11 % (0-9); NEUT # 3.5 x10^3/uL (1.8-7.7); NEUT % 67 % (31-73); PLATELET COUNT 178 x10^3/uL (140-400); RED BLOOD COUNT 4.54 x10^6/uL (3.50-5.40); WHITE BLOOD COUNT 5.2 x10^3/uL (4.0-11.0)
[2019-09-30 11:32] LABS: CALCIUM 8.7 mg/dL (8.5-10.1); CREATININE 0.7 mg/dL (0.6-1.0); GFR 82.5; POTASSIUM 4.2 mmol/L (3.5-5.1)
[2019-09-30 11:36] LABS: BILIRUBIN,URINE NEGATIVE (NEG); CLARITY,URINE CLEAR; COLOR,URINE YELLOW; NITRITE,URINE NEGATIVE (NEG); PROTEIN,URINE NEGATIVE (NEG-TRACE); UROBILINOGEN,URINE 0.2 mg/dL (0.2 mg/dL)
[2019-09-30 11:38] LABS: ALBUMIN 3.3 g/dL (3.4-5.0); MAGNESIUM 1.3 mg/dL (1.8-2.4); TOTAL BILIRUBIN 0.8 mg/dL (0.2-1.0); TOTAL PROTEIN 6.6 g/dL (6.4-8.2)
--- NOTE | 2019-09-30 11:47 | RAD ---
CT ABDOMEN PELVIS WO CONTRAST Indication: Right flank pain. Exposure: One or more of the following individualized dose reduction techniques were utilized for this examination: 1. Automated exposure control 2. Adjustment of the mA and/or kV according to patient size 3. Use of iterative reconstruction technique. Comparison: None are available. Technique: No intravenous contrast given. No oral contrast per request. Findings: Evaluation of solid viscera, bowel and vasculature is compromised by the noncontrast technique. Extensive interstitial markings and intralobular septal thickening seen in both lung bases. Could represent a component of chronic fibrosis, versus more acute pulmonary edema or interstitial infiltrate. Coronary artery calcifications are seen. Heterogeneous density of the liver, could be due to asymmetric geographic fatty infiltration. Cannot exclude hepatic mass. Spleen is not enlarged. Pancreas appears unremarkable. No evidence of adrenal mass. Kidneys demonstrate no evidence of hydronephrosis or calculus. No evidence of ureteric dilatation or ureteric calculus. Note that the distal ureters are difficult to visualize, more so on the left, due to left hip replacement artifact. Mild perinephric stranding, bilaterally symmetric, could be due to chronic medical renal disease. Linear layering density at the dependent gallbladder, compatible with gallstones. Gallbladder is not abnormally distended. Aorta is calcified, without evidence of aneurysmal dilatation. No evidence of pathologic lymph node enlargement. Stomach is not distended, and demonstrates no apparent abnormality. No significant small bowel distention. No evidence of acute colitis. [id number] retained stool through the colon. The appendix appears normal. Small anterior abdominal wall fat-containing hernia. No evidence of pneumoperitoneum. No significant ascites. Urinary bladder is not distended, there may be some wall thickening. Visualization of the urinary bladder and pelvis very suboptimal due to artifact from left hip replacement. Multilevel diffuse degenerative thoracolumbar spondylosis with spinal, neural foraminal and lateral recess stenosis of both the lower thoracic spine and the lumbar spine. Loss of height of the L3 vertebral body and to lesser extent L4 and L5 vertebral bodies, have a chronic appearance. No definite acute cortical break is seen to suggest an acute fracture unless suggested by clinical history. Degenerative changes at the right hip. IMPRESSION: 1. Heterogeneous liver density pattern. Evaluation is limited due to noncontrast technique, and this could represent asymmetric geographic fatty infiltration, but a hepatic mass is not excludable. Recommend further outpatient imaging workup with either MRI of the liver, or if that is not feasible, multiphase CT of the liver. 2. Interstitial opacities in both lung bases, suspicious for acute pulmonary edema or infiltrate, although more chronic fibrosis could also contribute to these findings. 3. Cholelithiasis. 4. Suboptimal urinary bladder visualization, but wall thickening raises the question of cystitis or mass. Consider urology consult or cystoscopy. 5. Mild loss of height of lower lumbar vertebrae, probably chronic mild fractures. 6. Thoracolumbar spondylosis with stenosis. Electronically signed by: Heber Ireland MD (09/30/2019 11:44 AM) [id number]
[2019-09-30 11:54] LABS: BACTERIA,URINE FEW /HPF (0-FEW); RBC,URINE OCC /HPF (0-2); SQUAMOUS EPITHELIAL CELL,UR FEW /LPF; WBC,URINE OCC /HPF (0-4)
[2019-09-30] MEDS: MAGNESIUM SULFATE 1GM 100 ML IV ONE (12:04)
[2019-09-30 12:30] VITALS: BP 122/59
== END 2019-09-30 12:50 | disposition home or self-care (01) ==
LOC: ER 10:07
DX: E83.42 Hypomagnesemia (principal); J84.10 Pulmonary fibrosis, unspecified; R53.83 Other fatigue; I10 Essential (primary) hypertension; E11.9 Type 2 diabetes mellitus without complications; K80.20 Calculus of gallbladder without cholecystitis without obstruction; M47.815 Spondylosis without myelopathy or radiculopathy, thoracolumbar region
CPT/HCPCS: 36415; 74176; 80053; 81001; 83605; 83690; 83735; 84484; 85025; 96365; 99284; J3475